=== PATIENT | female | born 1945 | race Caucasian/White ===

== ENCOUNTER 2017-06-22 12:52 | Emergency (ER) | payer MEDICARE, BC, OTHER ==
[~2017-06-22] VITALS: Ht 162.6 cm; Wt 123.8 kg
[~2017-06-22 12:52] MED LIST: AMLO10 PO; ASPI325 PO; ASPI81CH PO; ASPI81EC PO; BUPR150ER PO; BUPR150T2 PO; CHOL10002 PO; CHOLESTID PO; CYAN500 PO; DOCU100 PO; DULO60 PO; ERGO400 PO; ESCI10 PO; ESCI20 PO; FISH1000 PO; GLIP10ER PO; HYDMOR2 PO; Hair, Skin & N1 EACH PO; Humalog100 UNIT/1 SC; INSLI100I SC; INSLIS75I SC; INSR10I SC; INSULANI SC; INSULANPEN SC; IRBHYD150 PO; IRBHYD300 PO; LEVSOD200 PO; LEVSOD75 PO; LOSA25 PO; LOSARTAN-HCTZ1 EAC1 PO; METO50ER PO; METTREX2.5 PO; Norco 10-325 T1 EACH PO; OMEG1CAP30 PO; OMEP20ER PO; OXYACE5T PO; PIOG45 PO; PRED10 PO; PROM25 PO; PSYL5.85P PO; RXOXYACE PO; STOMUL PO; TOUJEO SOL300 UNIT/1 SC
[2017-06-22 13:38] LABS: Hematocrit 34.8 % (33.0-51.0); Mean Corpuscular HGB 32.3 pg (26.0-34.0); Mean Corpuscular HGB Conc 34.5 g/dL (31.5-36.5); Mean Corpuscular Volume 94 fL (80-100); Mean Platelet Volume 10.1 fL (9.1-12.4); NRBC ABSOLUTE 0.03 K/mm3 (0.00-0.02); NRBC Auto 0.3 /100 WBC (0.0-0.2); Platelet Count 143 K/mm3 (150-400); RDW Coefficient Variation 16.7 % (11.7-14.2); RDW Standard Deviation 53.6 fL (35.1-46.3); Red Blood Cell Count 3.72 M/mm3 (3.80-5.20); White Blood Cell Count 9.76 K/mm3 (4.00-11.30)
[2017-06-22 13:53] LABS: Alanine Aminotransfer (ALT/SGP 45 U/L (12-78); Albumin, Blood 3.1 g/dL (3.4-5.0); Albumin/Globulin Ratio 0.9 (0.8-1.8); Alk Phos 79 U/L (50-136); Anion Gap 10 mmol/L (6-16); Aspartate Aminotrans (AST/SGOT 42 U/L (12-37); Bilirubin, Total 0.6 mg/dL (0.1-1.0); Blood Urea Nitrogen 24 mg/dL (8-24); Bun/Creatinine Ratio 17.4 (12.0-20.0); CO2, Blood 27 mmol/L (21-32); Calcium, Blood 9.2 mg/dL (8.5-10.1); Chloride, Blood 102 mmol/L (98-108); Creatinine, Blood 1.38 mg/dL (0.40-1.00); Globulin, Blood 3.4 g/dL (2.2-4.0); Glomerular Filtration Rate 40 (60-); Glucose, Blood 303 mg/dL (70-99); Potassium, Blood 3.2 mmol/L (3.5-5.5); Sodium, Blood 139 mmol/L (136-145); Total Protein, Blood 6.5 g/dL (6.4-8.2); Troponin I <0.015 ng/mL (0.000-0.040)
[2017-06-22 14:05] LABS: BASOPHILS PERCENT MAN 0 % (0-2); EOSINOPHILS PERCENT MAN 0 % (0-6); LYMPHOCYTES ABSOLUTE MAN 4.58 K/mm3 (0.84-5.20); LYMPHOCYTES PERCENT MAN 47 % (21-46); METAMYELOCYTE ABSOLUTE MAN 0.29 K/mm3 (0.00-0.00); METAMYELOCYTE PERCENT MAN 3 % (0-0); MONOCYTES ABSOLUTE MAN 0.48 K/mm3 (0.16-1.47); MONOCYTES PERCENT MAN 5 % (4-13); NEUTROPHILS ABSOLUTE MAN 4.39 K/mm3 (1.96-9.15); SEG NEUTROPHILS PERCENT MAN 45 % (41-73); TOTAL CELLS COUNTED 100
[2017-06-22] MEDS ORDERED: Cipro500 MG PO (16:42)
[2017-06-22] MEDS ORDERED: Flagyl500 MG PO (16:42)
[2017-06-22] MEDS ORDERED: Norco 5-325 Ta1 EACH PO (16:42)
[2017-06-22] MEDS ORDERED: ONDA4ODT MM (16:42)
== END 2017-06-22 17:00 | disposition home or self-care (01) ==
LOC: ER 12:52
PROVIDERS: Emergency Medicine
DX: K52.9 Noninfective gastroenteritis and colitis, unspecified (principal); E11.9 Type 2 diabetes mellitus without complications; E78.00 Pure hypercholesterolemia, unspecified; Z88.5 Allergy status to narcotic agent; Z88.8 Allergy status to other drugs, medicaments and biological substances; Z79.899 Other long term (current) drug therapy; Z79.4 Long term (current) use of insulin; Z79.82 Long term (current) use of aspirin; Z90.712 Acquired absence of cervix with remaining uterus; Z90.49 Acquired absence of other specified parts of digestive tract; Z87.891 Personal history of nicotine dependence
CPT/HCPCS: 36415; 71046; 74177; 80053; 83690; 83880; 84484; 85025; 93005; 93010; 96374; 96375; 96376; 99284; J1170; J2405; Q9967

== ENCOUNTER 2017-07-10 14:06 | Inpatient (IN) | payer MEDICARE, BC, OTHER ==
[~2017-07-10] VITALS: Ht 162.6 cm; Wt 136.8 kg
[~2017-07-10 14:06] MED LIST changes: +Cipro500 MG PO; +Flagyl500 MG PO; +Norco 5-325 Ta1 EACH PO; +ONDA4ODT MM
[2017-07-10 14:52] LABS: BASOPHILS ABSOLUTE AUTO 0.02 K/mm3 (0.00-0.23); BASOPHILS PERCENT AUTO 0 % (0-2); EOSINOPHILS ABSOLUTE AUTO 0.08 K/mm3 (0.00-0.68); EOSINOPHILS PERCENT AUTO 1 % (0-6); Hematocrit 34.6 % (33.0-51.0); Hemoglobin 11.4 g/dL (11.5-16.0); Mean Corpuscular HGB 32.3 pg (26.0-34.0); Mean Corpuscular HGB Conc 32.9 g/dL (31.5-36.5); Mean Corpuscular Volume 98 fL (80-100); Mean Platelet Volume 11.3 fL (9.1-12.4); Platelet Count 143 K/mm3 (150-400); RDW Coefficient Variation 17.2 % (11.7-14.2); RDW Standard Deviation 61.1 fL (35.1-46.3); Red Blood Cell Count 3.53 M/mm3 (3.80-5.20); White Blood Cell Count 8.39 K/mm3 (4.00-11.30)
[2017-07-10 14:53] LABS: IMMATURE GRAN ABSOLUTE AUTO 0.04 K/mm3 (0.00-0.10); IMMATURE GRAN PERCENT AUTO 1 % (0-1); LYMPHOCYTES ABSOLUTE AUTO 1.95 K/mm3 (0.84-5.20); LYMPHOCYTES PERCENT AUTO 23 % (21-46); MONOCYTES PERCENT AUTO 5 % (4-13); NEUTROPHILS PERCENT AUTO 70 % (41-73)
[2017-07-10 15:14] LABS: Troponin I 0.016 ng/mL (0.000-0.040)
[2017-07-10 15:19] LABS: Albumin/Globulin Ratio 0.9 (0.8-1.8); Bilirubin, Total 1.5 mg/dL (0.1-1.0); Bun/Creatinine Ratio 22.3 (12.0-20.0); Calcium, Blood 8.3 mg/dL (8.5-10.1); Creatinine, Blood 1.21 mg/dL (0.40-1.00); Globulin, Blood 3.4 g/dL (2.2-4.0); Potassium, Blood 3.9 mmol/L (3.5-5.5); Total Protein, Blood 6.4 g/dL (6.4-8.2)
[2017-07-10 22:45] LABS: Adenovirus F 40/41 Not Detected (NOT DETECT); Astrovirus Not Detected (NOT DETECT); Campylobacter Sp Not Detected (NOT DETECT); Cryptosporidium Not Detected (NOT DETECT); Cyclospora Cayetanensis Not Detected (NOT DETECT); E. Coli O157 Not Detected (NOT DETECT); Entamoeba Histolytica Not Detected (NOT DETECT); Enteroaggregative E. coli-EAEC Not Detected (NOT DETECT); Enteropathogenic E. coli-EPEC Not Detected (NOT DETECT); Enterotoxigenic E. coli-ETEC Not Detected (NOT DETECT); Giardia Lamblia Not Detected (NOT DETECT); Norovirus GI/GII Not Detected (NOT DETECT); Plesiomonas Shigelloides Not Detected (NOT DETECT); Rotavirus A Not Detected (NOT DETECT); Salmonella Sp Not Detected (NOT DETECT); Sapovirus Not Detected (NOT DETECT); Shiga Toxin-prod E. coli-STEC Not Detected (NOT DETECT); Shigella/Enteroin E. coli-EIEC Not Detected (NOT DETECT); Vibrio Cholerae Not Detected (NOT DETECT); Vibrio Sp Not Detected (NOT DETECT); Yersinia Enterocolitica Not Detected (NOT DETECT)
[2017-07-10 23:39] LABS: Influenza A Negative (NEGATIVE); Influenza B Negative (NEGATIVE)
[2017-07-11 00:16] LABS: BASOPHILS ABSOLUTE AUTO 0.01 K/mm3 (0.00-0.23); BASOPHILS PERCENT AUTO 0 % (0-2); EOSINOPHILS ABSOLUTE AUTO 0.06 K/mm3 (0.00-0.68); EOSINOPHILS PERCENT AUTO 1 % (0-6); Hematocrit 28.6 % (33.0-51.0); Hemoglobin 9.8 g/dL (11.5-16.0); Mean Corpuscular HGB 33.1 pg (26.0-34.0); Mean Corpuscular HGB Conc 34.3 g/dL (31.5-36.5); Mean Corpuscular Volume 97 fL (80-100); Mean Platelet Volume 11.9 fL (9.1-12.4); Platelet Count 137 K/mm3 (150-400); RDW Coefficient Variation 17.1 % (11.7-14.2); RDW Standard Deviation 59.1 fL (35.1-46.3); Red Blood Cell Count 2.96 M/mm3 (3.80-5.20); White Blood Cell Count 5.36 K/mm3 (4.00-11.30)
[2017-07-11 00:17] LABS: IMMATURE GRAN ABSOLUTE AUTO 0.07 K/mm3 (0.00-0.10); IMMATURE GRAN PERCENT AUTO 1 % (0-1); LYMPHOCYTES ABSOLUTE AUTO 1.27 K/mm3 (0.84-5.20); LYMPHOCYTES PERCENT AUTO 24 % (21-46); MONOCYTES ABSOLUTE AUTO 0.46 K/mm3 (0.16-1.47); MONOCYTES PERCENT AUTO 9 % (4-13); NEUTROPHILS ABSOLUTE AUTO 3.49 K/mm3 (1.96-9.15); NEUTROPHILS PERCENT AUTO 65 % (41-73)
[2017-07-11 00:35] LABS: Albumin, Blood 2.5 g/dL (3.4-5.0); Albumin/Globulin Ratio 0.8 (0.8-1.8); Bun/Creatinine Ratio 24.3 (12.0-20.0); Calcium, Blood 7.7 mg/dL (8.5-10.1); Creatinine, Blood 1.11 mg/dL (0.40-1.00); Potassium, Blood 3.8 mmol/L (3.5-5.5); Total Protein, Blood 5.5 g/dL (6.4-8.2)
[2017-07-12 13:51] LABS: Source, Urine Catheter
[2017-07-12 14:00] LABS: Appearance, Urine Hazy (Clear); Blood, Urine 3+ (Neg); Color, Urine Amber (P-Yellow); Glucose Qualitative, Urine 2+ (Neg); Ketones, Urine 1+ (Neg); Leukocyte Esterase, Urine 2+ (Neg); Nitrite, Urine Pos (Neg); Protein, Urine 3+ (Neg); Urobilinogen, Urine 1+ (Normal)
[2017-07-12 14:16] LABS: Squamous Epithelial Cells Few /hpf (Few)
[2017-07-12 14:17] LABS: Bacteria Mod /hpf
[2017-07-14 05:03] LABS: Bun/Creatinine Ratio 25.3 (12.0-20.0); Calcium, Blood 7.1 mg/dL (8.5-10.1); Creatinine, Blood 1.9 mg/dL (0.40-1.00); Magnesium, Blood 1.6 mg/dL (1.6-2.4); Potassium, Blood 3.3 mmol/L (3.5-5.5)
[2017-07-15 05:31] LABS: Hematocrit 31.3 % (33.0-51.0); Hemoglobin 10.8 g/dL (11.5-16.0); Mean Corpuscular HGB Conc 34.5 g/dL (31.5-36.5); Mean Corpuscular Volume 96 fL (80-100); Mean Platelet Volume 12.1 fL (9.1-12.4); NRBC ABSOLUTE 0.06 K/mm3 (0.00-0.02); NRBC Auto 0.2 /100 WBC (0.0-0.2); Platelet Count 179 K/mm3 (150-400); RDW Coefficient Variation 18.5 % (11.7-14.2); RDW Standard Deviation 64.1 fL (35.1-46.3); Red Blood Cell Count 3.27 M/mm3 (3.80-5.20); White Blood Cell Count 27.13 K/mm3 (4.00-11.30)
[2017-07-15 05:50] LABS: Bun/Creatinine Ratio 26.8 (12.0-20.0); Calcium, Blood 6.7 mg/dL (8.5-10.1); Creatinine, Blood 1.98 mg/dL (0.40-1.00); Potassium, Blood 3.3 mmol/L (3.5-5.5)
[2017-07-15 06:17] LABS: BAND PERCENT MAN 3 % (0-8); BASOPHILS PERCENT MAN 0 % (0-2); EOSINOPHILS PERCENT MAN 0 % (0-6); LYMPHOCYTES % ATYPICAL MANUAL 1 % (0-0); LYMPHOCYTES ABSOLUTE MAN 2.17 K/mm3 (0.84-5.20); LYMPHOCYTES PERCENT MAN 7 % (21-46); METAMYELOCYTE ABSOLUTE MAN 0.27 K/mm3 (0.00-0.00); METAMYELOCYTE PERCENT MAN 1 % (0-0); MONOCYTES ABSOLUTE MAN 2.17 K/mm3 (0.16-1.47); MONOCYTES PERCENT MAN 8 % (4-13); MYELOCYTE ABSOLUTE MAN 0.27 K/mm3 (0.00-0.00); MYELOCYTE PERCENT MAN 1 % (0-0); NEUTROPHILS ABSOLUTE MAN 22.24 K/mm3 (1.96-9.15); SEG NEUTROPHILS PERCENT MAN 79 % (41-73); TOTAL CELLS COUNTED 100
[2017-07-16 05:18] LABS: Hematocrit 28.5 % (33.0-51.0); Hemoglobin 9.8 g/dL (11.5-16.0); Mean Corpuscular HGB 32.8 pg (26.0-34.0); Mean Corpuscular HGB Conc 34.4 g/dL (31.5-36.5); Mean Corpuscular Volume 95 fL (80-100); Mean Platelet Volume 11.4 fL (9.1-12.4); NRBC ABSOLUTE 0.04 K/mm3 (0.00-0.02); NRBC Auto 0.1 /100 WBC (0.0-0.2); Platelet Count 150 K/mm3 (150-400); RDW Coefficient Variation 18.3 % (11.7-14.2); RDW Standard Deviation 63.7 fL (35.1-46.3); Red Blood Cell Count 2.99 M/mm3 (3.80-5.20); White Blood Cell Count 27.68 K/mm3 (4.00-11.30)
[2017-07-16 05:44] LABS: BAND PERCENT MAN 5 % (0-8); BASOPHILS PERCENT MAN 0 % (0-2); EOSINOPHILS ABSOLUTE MAN 0.55 K/mm3 (0.00-0.68); EOSINOPHILS PERCENT MAN 2 % (0-6); LYMPHOCYTES ABSOLUTE MAN 3.59 K/mm3 (0.84-5.20); LYMPHOCYTES PERCENT MAN 13 % (21-46); METAMYELOCYTE ABSOLUTE MAN 0.83 K/mm3 (0.00-0.00); METAMYELOCYTE PERCENT MAN 3 % (0-0); MONOCYTES PERCENT MAN 4 % (4-13); MYELOCYTE ABSOLUTE MAN 0.27 K/mm3 (0.00-0.00); MYELOCYTE PERCENT MAN 1 % (0-0); NEUTROPHILS ABSOLUTE MAN 21.31 K/mm3 (1.96-9.15); SEG NEUTROPHILS PERCENT MAN 72 % (41-73); TOTAL CELLS COUNTED 100
[2017-07-16 06:04] LABS: Calcium, Blood 7.4 mg/dL (8.5-10.1); Creatinine, Blood 1.94 mg/dL (0.40-1.00); Potassium, Blood 3.2 mmol/L (3.5-5.5)
[2017-07-16 17:55] LABS: Source, Urine Voided
[2017-07-16 18:00] LABS: Blood, Urine 5+ (Neg); Glucose Qualitative, Urine Neg (Neg); Ketones, Urine 1+ (Neg); Leukocyte Esterase, Urine 2+ (Neg); Nitrite, Urine Pos (Neg); Protein, Urine 1+ (Neg); Urobilinogen, Urine 1+ (Normal)
[2017-07-16 18:10] LABS: Adenovirus F 40/41 Not Detected (NOT DETECT); Astrovirus Not Detected (NOT DETECT); Campylobacter Sp Not Detected (NOT DETECT); Cryptosporidium Not Detected (NOT DETECT); Cyclospora Cayetanensis Not Detected (NOT DETECT); E. Coli O157 Not Detected (NOT DETECT); Entamoeba Histolytica Not Detected (NOT DETECT); Enteroaggregative E. coli-EAEC Not Detected (NOT DETECT); Enteropathogenic E. coli-EPEC Not Detected (NOT DETECT); Enterotoxigenic E. coli-ETEC Not Detected (NOT DETECT); Giardia Lamblia Not Detected (NOT DETECT); Norovirus GI/GII Not Detected (NOT DETECT); Plesiomonas Shigelloides Not Detected (NOT DETECT); Rotavirus A Not Detected (NOT DETECT); Salmonella Sp Not Detected (NOT DETECT); Sapovirus Not Detected (NOT DETECT); Shiga Toxin-prod E. coli-STEC Not Detected (NOT DETECT); Shigella/Enteroin E. coli-EIEC Not Detected (NOT DETECT); Vibrio Cholerae Not Detected (NOT DETECT); Vibrio Sp Not Detected (NOT DETECT); Yersinia Enterocolitica Not Detected (NOT DETECT)
[2017-07-16 18:44] LABS: Bilirubin, Urine 1+ (Neg); Color, Urine Brown (P-Yellow)
[2017-07-16 18:45] LABS: Appearance, Urine Hazy (Clear)
[2017-07-16 18:49] LABS: Red Blood Cells, Urine 25-50 /hpf (0-2)
[2017-07-16 18:50] LABS: Bacteria Few /hpf; Squamous Epithelial Cells Few /hpf (Few)
[2017-07-17 04:53] LABS: Hematocrit 26.7 % (33.0-51.0); Hemoglobin 9.3 g/dL (11.5-16.0); Mean Corpuscular HGB 32.7 pg (26.0-34.0); Mean Corpuscular HGB Conc 34.8 g/dL (31.5-36.5); Mean Corpuscular Volume 94 fL (80-100); Mean Platelet Volume 11.8 fL (9.1-12.4); NRBC ABSOLUTE 0.06 K/mm3 (0.00-0.02); NRBC Auto 0.2 /100 WBC (0.0-0.2); Platelet Count 150 K/mm3 (150-400); RDW Coefficient Variation 18.1 % (11.7-14.2); Red Blood Cell Count 2.84 M/mm3 (3.80-5.20); White Blood Cell Count 26.35 K/mm3 (4.00-11.30)
[2017-07-17 05:16] LABS: Bun/Creatinine Ratio 40.4 (12.0-20.0); Calcium, Blood 7.4 mg/dL (8.5-10.1); Creatinine, Blood 1.61 mg/dL (0.40-1.00); Potassium, Blood 3.6 mmol/L (3.5-5.5)
[2017-07-17 05:33] LABS: BAND PERCENT MAN 1 % (0-8); BASOPHILS PERCENT MAN 0 % (0-2); EOSINOPHILS ABSOLUTE MAN 0.52 K/mm3 (0.00-0.68); EOSINOPHILS PERCENT MAN 2 % (0-6); LYMPHOCYTES ABSOLUTE MAN 4.74 K/mm3 (0.84-5.20); LYMPHOCYTES PERCENT MAN 18 % (21-46); MONOCYTES ABSOLUTE MAN 1.31 K/mm3 (0.16-1.47); MONOCYTES PERCENT MAN 5 % (4-13); MYELOCYTE ABSOLUTE MAN 1.05 K/mm3 (0.00-0.00); MYELOCYTE PERCENT MAN 4 % (0-0); SEG NEUTROPHILS PERCENT MAN 70 % (41-73); TOTAL CELLS COUNTED 100
[2017-07-18 05:06] LABS: Thyroid Stimulating Hormone 5.16 uIU/mL (0.360-4.800)
[2017-07-18 05:07] LABS: Albumin, Blood 1.7 g/dL (3.4-5.0); Albumin/Globulin Ratio 0.6 (0.8-1.8); Bilirubin, Total 1.3 mg/dL (0.1-1.0); Calcium, Blood 7.5 mg/dL (8.5-10.1); Creatinine, Blood 1.23 mg/dL (0.40-1.00); Globulin, Blood 2.9 g/dL (2.2-4.0); Potassium, Blood 3.7 mmol/L (3.5-5.5); Total Protein, Blood 4.6 g/dL (6.4-8.2)
[2017-07-18 06:27] LABS: BASOPHILS ABSOLUTE AUTO 0.18 K/mm3 (0.00-0.23); BASOPHILS PERCENT AUTO 1 % (0-2); Hematocrit 29.1 % (33.0-51.0); Hemoglobin 9.7 g/dL (11.5-16.0); LYMPHOCYTES ABSOLUTE AUTO 3.14 K/mm3 (0.84-5.20); LYMPHOCYTES PERCENT AUTO 12 % (21-46); MONOCYTES ABSOLUTE AUTO 2.19 K/mm3 (0.16-1.47); MONOCYTES PERCENT AUTO 8 % (4-13); Mean Corpuscular HGB 33.1 pg (26.0-34.0); Mean Corpuscular HGB Conc 33.3 g/dL (31.5-36.5); Mean Platelet Volume 12.2 fL (9.1-12.4); NRBC ABSOLUTE 0.14 K/mm3 (0.00-0.02); NRBC Auto 0.5 /100 WBC (0.0-0.2); Platelet Count 154 K/mm3 (150-400); RDW Coefficient Variation 19.2 % (11.7-14.2); RDW Standard Deviation 69.3 fL (35.1-46.3); Red Blood Cell Count 2.93 M/mm3 (3.80-5.20); White Blood Cell Count 27.11 K/mm3 (4.00-11.30)
[2017-07-18 06:36] LABS: EOSINOPHILS PERCENT AUTO 1 % (0-6); IMMATURE GRAN ABSOLUTE AUTO 5.09 K/mm3 (0.00-0.10); IMMATURE GRAN PERCENT AUTO 19 % (0-1); Mean Corpuscular Volume 99 fL (80-100); NEUTROPHILS ABSOLUTE AUTO 16.31 K/mm3 (1.96-9.15); NEUTROPHILS PERCENT AUTO 60 % (41-73)
[2017-07-18 06:56] LABS: BAND PERCENT MAN 8 % (0-8); BASOPHILS PERCENT MAN 0 % (0-2); EOSINOPHILS ABSOLUTE MAN 0.27 K/mm3 (0.00-0.68); EOSINOPHILS PERCENT MAN 1 % (0-6); LYMPHOCYTES ABSOLUTE MAN 2.16 K/mm3 (0.84-5.20); LYMPHOCYTES PERCENT MAN 8 % (21-46); METAMYELOCYTE ABSOLUTE MAN 2.43 K/mm3 (0.00-0.00); METAMYELOCYTE PERCENT MAN 9 % (0-0); MONOCYTES ABSOLUTE MAN 0.81 K/mm3 (0.16-1.47); MONOCYTES PERCENT MAN 3 % (4-13); MYELOCYTE ABSOLUTE MAN 0.27 K/mm3 (0.00-0.00); MYELOCYTE PERCENT MAN 1 % (0-0); PROMYELOCYTE ABSOLUTE MAN 0.54 K/mm3 (0.00-0.00); PROMYELOCYTE PERCENT MAN 2 % (0-0); SEG NEUTROPHILS PERCENT MAN 68 % (41-73); TOTAL CELLS COUNTED 100
[2017-07-18 10:58] LABS: Bilirubin, Direct 0.9 mg/dL (0.0-0.3)
[2017-07-19 05:15] LABS: BASOPHILS ABSOLUTE AUTO 0.05 K/mm3 (0.00-0.23); BASOPHILS PERCENT AUTO 0 % (0-2); EOSINOPHILS ABSOLUTE AUTO 0.18 K/mm3 (0.00-0.68); EOSINOPHILS PERCENT AUTO 1 % (0-6); Hematocrit 31.1 % (33.0-51.0); Hemoglobin 10.2 g/dL (11.5-16.0); IMMATURE GRAN ABSOLUTE AUTO 5.64 K/mm3 (0.00-0.10); IMMATURE GRAN PERCENT AUTO 21 % (0-1); LYMPHOCYTES ABSOLUTE AUTO 3.47 K/mm3 (0.84-5.20); LYMPHOCYTES PERCENT AUTO 13 % (21-46); MONOCYTES ABSOLUTE AUTO 2.16 K/mm3 (0.16-1.47); MONOCYTES PERCENT AUTO 8 % (4-13); Mean Corpuscular HGB Conc 32.8 g/dL (31.5-36.5); Mean Corpuscular Volume 98 fL (80-100); Mean Platelet Volume 11.9 fL (9.1-12.4); NEUTROPHILS ABSOLUTE AUTO 15.09 K/mm3 (1.96-9.15); NEUTROPHILS PERCENT AUTO 57 % (41-73); NRBC ABSOLUTE 0.17 K/mm3 (0.00-0.02); NRBC Auto 0.6 /100 WBC (0.0-0.2); Platelet Count 172 K/mm3 (150-400); RDW Coefficient Variation 19.9 % (11.7-14.2); RDW Standard Deviation 69.6 fL (35.1-46.3); Red Blood Cell Count 3.19 M/mm3 (3.80-5.20); White Blood Cell Count 26.59 K/mm3 (4.00-11.30)
[2017-07-19 05:42] LABS: Bun/Creatinine Ratio 50.1 (12.0-20.0); Calcium, Blood 7.8 mg/dL (8.5-10.1); Potassium, Blood 4.3 mmol/L (3.5-5.5)
[2017-07-19 05:51] LABS: BAND PERCENT MAN 7 % (0-8); BASOPHILS PERCENT MAN 0 % (0-2); EOSINOPHILS ABSOLUTE MAN 0.26 K/mm3 (0.00-0.68); EOSINOPHILS PERCENT MAN 1 % (0-6); LYMPHOCYTES ABSOLUTE MAN 1.32 K/mm3 (0.84-5.20); LYMPHOCYTES PERCENT MAN 5 % (21-46); METAMYELOCYTE ABSOLUTE MAN 2.12 K/mm3 (0.00-0.00); METAMYELOCYTE PERCENT MAN 8 % (0-0); MONOCYTES ABSOLUTE MAN 1.86 K/mm3 (0.16-1.47); MONOCYTES PERCENT MAN 7 % (4-13); MYELOCYTE ABSOLUTE MAN 0.79 K/mm3 (0.00-0.00); MYELOCYTE PERCENT MAN 3 % (0-0); SEG NEUTROPHILS PERCENT MAN 69 % (41-73); TOTAL CELLS COUNTED 100
[2017-07-20 10:44] LABS: Hematocrit 30.3 % (33.0-51.0); Hemoglobin 9.9 g/dL (11.5-16.0); Mean Corpuscular HGB 32.2 pg (26.0-34.0); Mean Corpuscular HGB Conc 32.7 g/dL (31.5-36.5); Mean Corpuscular Volume 99 fL (80-100); Mean Platelet Volume 11.3 fL (9.1-12.4); NRBC ABSOLUTE 0.18 K/mm3 (0.00-0.02); NRBC Auto 0.8 /100 WBC (0.0-0.2); Platelet Count 135 K/mm3 (150-400); RDW Coefficient Variation 20.9 % (11.7-14.2); RDW Standard Deviation 71.9 fL (35.1-46.3); Red Blood Cell Count 3.07 M/mm3 (3.80-5.20); White Blood Cell Count 23.35 K/mm3 (4.00-11.30)
[2017-07-20 11:05] LABS: BAND PERCENT MAN 8 % (0-8); BASOPHILS PERCENT MAN 0 % (0-2); EOSINOPHILS ABSOLUTE MAN 0.23 K/mm3 (0.00-0.68); EOSINOPHILS PERCENT MAN 1 % (0-6); LYMPHOCYTES ABSOLUTE MAN 1.86 K/mm3 (0.84-5.20); LYMPHOCYTES PERCENT MAN 8 % (21-46); METAMYELOCYTE ABSOLUTE MAN 1.16 K/mm3 (0.00-0.00); METAMYELOCYTE PERCENT MAN 5 % (0-0); MONOCYTES ABSOLUTE MAN 0.93 K/mm3 (0.16-1.47); MONOCYTES PERCENT MAN 4 % (4-13); MYELOCYTE PERCENT MAN 6 % (0-0); NEUTROPHILS ABSOLUTE MAN 17.74 K/mm3 (1.96-9.15); SEG NEUTROPHILS PERCENT MAN 68 % (41-73); TOTAL CELLS COUNTED 100
[2017-07-20 11:05] LABS: Performing Lab SYMBIODX; Test Name FLOW BLOOD
[2017-07-21 05:09] LABS: CK BB 0 % (0); CK MB 0 % (0-3); CK MM 100 % (97-100)
[2017-07-21 10:59] LABS: Anion Gap 8 mmol/L (6-16); Blood Urea Nitrogen 30 mg/dL (8-24); Bun/Creatinine Ratio 39.7 (12.0-20.0); CO2, Blood 22 mmol/L (21-32); Calcium, Blood 8.1 mg/dL (8.5-10.1); Chloride, Blood 114 mmol/L (98-108); Creatinine, Blood 0.76 mg/dL (0.40-1.00); Glomerular Filtration Rate >60 (60-); Glucose, Blood 197 mg/dL (70-99); Phosphorus, Blood 2.5 mg/dL (2.5-4.9); Potassium, Blood 4.3 mmol/L (3.5-5.5); Sodium, Blood 144 mmol/L (136-145)
[2017-07-21] MEDS ORDERED: LEVEMIR FL100 UNIT/1 SC (13:51)
[2017-07-21] MEDS ORDERED: DULO60 PO (13:53)
[2017-07-21] MEDS ORDERED: INSU100I6 SC (13:55)
[2017-07-21] MEDS ORDERED: VANCOCIN HCL250 MG PO (13:58)
[2017-07-21] MEDS ORDERED: ONDA4ODT SL (13:59)
[2017-07-21 15:20] LABS: Result SEE LABOUT RESULTS
== END 2017-07-21 14:33 | DRG 871 ==
LOC: ER 14:06 → MEDS 19:50 → ENPENDDIS 07-21 10:52 → MEDS 07-21 14:33
PROVIDERS: Internal Medicine; Internal Medicine Gastroenterology; Physician Assistant
PROC: 3E0234Z Introduction of Serum, Toxoid and Vaccine into Muscle, Percutaneous Approach (ICD-10-PCS; principal; 2017-07-10)
DX: A41.4 Sepsis due to anaerobes (principal); G93.41 Metabolic encephalopathy; N17.9 Acute kidney failure, unspecified; A04.72 Enterocolitis due to Clostridium difficile, not specified as recurrent; C85.90 Non-Hodgkin lymphoma, unspecified, unspecified site; Z68.42 Body mass index [BMI] 45.0-49.9, adult; E87.1 Hypo-osmolality and hyponatremia; S22.39XA Fracture of one rib, unspecified side, initial encounter for closed fracture; E11.22 Type 2 diabetes mellitus with diabetic chronic kidney disease; Z23 Encounter for immunization; E66.01 Morbid (severe) obesity due to excess calories; M35.3 Polymyalgia rheumatica; I12.9 Hypertensive chronic kidney disease with stage 1 through stage 4 chronic kidney disease, or unspecified chronic kidney disease; N18.3 Chronic kidney disease, stage 3 (moderate); E83.51 Hypocalcemia; R33.9 Retention of urine, unspecified; E87.6 Hypokalemia; R44.1 Visual hallucinations
CPT/HCPCS: 36415; 71046; 71260; 74019; 74176; 74177; 76705; 80048; 80053; 80069; 81001; 82140; 82248; 82550; 82552; 82947; 82977; 83605; 83735; 83993; 84145; 84443; 84484; 85007; 85025; 85027; 85060; 85651; 87040; 87086; 87177; 87209; 87493; 87507; 87804; 88184; 88185; 93005; 93010; 96361; 96374; 96375; 97110; 97116; 97163; 97530; 99285; G8978; G8979; J1170; J1650; J1815; J2060; J2270; J2405; J3010; J3480; J7030; Q9967

== ENCOUNTER 2017-07-24 17:31 | Emergency (ER) | payer MEDICARE, BC, OTHER ==
[~2017-07-24] VITALS: Ht 162.6 cm; Wt 136.1 kg
[~2017-07-24 17:31] MED LIST changes: +INSU100I6 SC; +LEVEMIR FL100 UNIT/1 SC; +ONDA4ODT SL; +VANCOCIN HCL250 MG PO
[2017-07-24] MEDS ORDERED: ACET325 PO (18:19)
[2017-07-24] MEDS ORDERED: VANC250 PO (18:20)
[2017-07-24] MEDS ORDERED: BISA10S PR (18:20)
[2017-07-24] MEDS ORDERED: CVS DISPOSABLE399 ML PR (18:21)
[2017-07-24] MEDS ORDERED: Milk Of Ma400 MG/5 M PO (18:22)
[2017-07-24 18:39] LABS: BASOPHILS ABSOLUTE AUTO 0.02 K/mm3 (0.00-0.23); BASOPHILS PERCENT AUTO 0 % (0-2); EOSINOPHILS ABSOLUTE AUTO 0.08 K/mm3 (0.00-0.68); EOSINOPHILS PERCENT AUTO 1 % (0-6); Hematocrit 31.8 % (33.0-51.0); Hemoglobin 10.1 g/dL (11.5-16.0); IMMATURE GRAN ABSOLUTE AUTO 0.28 K/mm3 (0.00-0.10); IMMATURE GRAN PERCENT AUTO 3 % (0-1); LYMPHOCYTES ABSOLUTE AUTO 2.27 K/mm3 (0.84-5.20); LYMPHOCYTES PERCENT AUTO 22 % (21-46); MONOCYTES PERCENT AUTO 11 % (4-13); Mean Corpuscular HGB 32.9 pg (26.0-34.0); Mean Corpuscular HGB Conc 31.8 g/dL (31.5-36.5); Mean Platelet Volume 12.1 fL (9.1-12.4); NEUTROPHILS ABSOLUTE AUTO 6.48 K/mm3 (1.96-9.15); NEUTROPHILS PERCENT AUTO 63 % (41-73); Platelet Count 154 K/mm3 (150-400); RDW Coefficient Variation 20.6 % (11.7-14.2); RDW Standard Deviation 78.3 fL (35.1-46.3); Red Blood Cell Count 3.07 M/mm3 (3.80-5.20); White Blood Cell Count 10.23 K/mm3 (4.00-11.30)
[2017-07-24 18:42] LABS: Mean Corpuscular Volume 104 fL (80-100)
[2017-07-24 19:00] LABS: Alanine Aminotransfer (ALT/SGP 33 U/L (12-78); Albumin/Globulin Ratio 0.7 (0.8-1.8); Alk Phos 300 U/L (50-136); Anion Gap 9 mmol/L (6-16); Aspartate Aminotrans (AST/SGOT 57 U/L (12-37); Bilirubin, Total 0.9 mg/dL (0.1-1.0); Blood Urea Nitrogen 15 mg/dL (8-24); Bun/Creatinine Ratio 18.4 (12.0-20.0); CO2, Blood 22 mmol/L (21-32); Calcium, Blood 7.6 mg/dL (8.5-10.1); Chloride, Blood 111 mmol/L (98-108); Creatinine, Blood 0.82 mg/dL (0.40-1.00); Globulin, Blood 2.9 g/dL (2.2-4.0); Glomerular Filtration Rate >60 (60-); Glucose, Blood 118 mg/dL (70-99); Potassium, Blood 4.1 mmol/L (3.5-5.5); Sodium, Blood 142 mmol/L (136-145); Total Protein, Blood 4.9 g/dL (6.4-8.2)
[2017-07-24 19:43] LABS: Source, Urine Clean Catch
[2017-07-24 19:49] LABS: Appearance, Urine Hazy (Clear); Bilirubin, Urine Neg (Neg); Blood, Urine 5+ (Neg); Color, Urine Yellow (P-Yellow); Glucose Qualitative, Urine Neg (Neg); Ketones, Urine Neg (Neg); Leukocyte Esterase, Urine 3+ (Neg); Nitrite, Urine Neg (Neg); Protein, Urine Neg (Neg); Specific Gravity, Urine 1.015 (1.003-1.022); Urobilinogen, Urine NORM (Normal)
[2017-07-24 20:14] LABS: Bacteria Mod /hpf; Squamous Epithelial Cells Many /hpf (Few); White Blood Cells, Urine 50-100 /hpf (0-5)
[2017-07-24] MEDS ORDERED: CEFP200 PO (21:08)
== END 2017-07-24 22:24 | disposition home or self-care (01) ==
LOC: ER 17:31
PROVIDERS: Emergency Medicine
DX: N39.0 Urinary tract infection, site not specified (principal); E11.9 Type 2 diabetes mellitus without complications; E78.00 Pure hypercholesterolemia, unspecified; Z88.5 Allergy status to narcotic agent; Z88.8 Allergy status to other drugs, medicaments and biological substances; Z79.899 Other long term (current) drug therapy; Z79.52 Long term (current) use of systemic steroids; Z79.4 Long term (current) use of insulin; Z79.82 Long term (current) use of aspirin; Z90.712 Acquired absence of cervix with remaining uterus; N28.9 Disorder of kidney and ureter, unspecified; I10 Essential (primary) hypertension; G47.33 Obstructive sleep apnea (adult) (pediatric)
CPT/HCPCS: 36415; 74176; 80053; 81001; 83690; 85025; 87086; 96361; 96374; 96375; 96376; 99284; J0696; J1170; J1200; J1630; J2405; J7030

== ENCOUNTER 2017-09-15 00:01 | Observation (INO) | payer MEDICARE, BC, OTHER ==
[~2017-09-15] VITALS: Ht 162.6 cm; Wt 124.5 kg
[~2017-09-15 00:01] MED LIST changes: +ACET325 PO; +BISA10S PR; +CEFP200 PO; +CVS DISPOSABLE399 ML PR; +Milk Of Ma400 MG/5 M PO; +VANC250 PO
[2017-09-15 00:23] LABS: BASOPHILS ABSOLUTE AUTO 0.04 K/mm3 (0.00-0.23); BASOPHILS PERCENT AUTO 0 % (0-2); EOSINOPHILS ABSOLUTE AUTO 0.15 K/mm3 (0.00-0.68); EOSINOPHILS PERCENT AUTO 1 % (0-6); Hematocrit 38.7 % (33.0-51.0); Hemoglobin 12.9 g/dL (11.5-16.0); IMMATURE GRAN ABSOLUTE AUTO 0.08 K/mm3 (0.00-0.10); IMMATURE GRAN PERCENT AUTO 1 % (0-1); LYMPHOCYTES ABSOLUTE AUTO 4.23 K/mm3 (0.84-5.20); LYMPHOCYTES PERCENT AUTO 40 % (21-46); MONOCYTES ABSOLUTE AUTO 0.98 K/mm3 (0.16-1.47); MONOCYTES PERCENT AUTO 9 % (4-13); Mean Corpuscular HGB 31.9 pg (26.0-34.0); Mean Corpuscular HGB Conc 33.3 g/dL (31.5-36.5); Mean Corpuscular Volume 96 fL (80-100); Mean Platelet Volume 11.1 fL (9.1-12.4); NEUTROPHILS PERCENT AUTO 48 % (41-73); Platelet Count 177 K/mm3 (150-400); RDW Standard Deviation 46.5 fL (35.1-46.3); Red Blood Cell Count 4.04 M/mm3 (3.80-5.20); White Blood Cell Count 10.58 K/mm3 (4.00-11.30)
[2017-09-15 00:38] LABS: Alanine Aminotransfer (ALT/SGP 18 U/L (12-78); Albumin, Blood 2.4 g/dL (3.4-5.0); Albumin/Globulin Ratio 0.7 (0.8-1.8); Alk Phos 166 U/L (50-136); Anion Gap 11 mmol/L (6-16); Aspartate Aminotrans (AST/SGOT 27 U/L (12-37); Bilirubin, Total 0.5 mg/dL (0.1-1.0); Blood Urea Nitrogen 16 mg/dL (8-24); Bun/Creatinine Ratio 15.4 (12.0-20.0); CO2, Blood 30 mmol/L (21-32); Calcium, Blood 7.7 mg/dL (8.5-10.1); Chloride, Blood 91 mmol/L (98-108); Creatinine, Blood 1.04 mg/dL (0.40-1.00); Globulin, Blood 3.6 g/dL (2.2-4.0); Glomerular Filtration Rate 55 (60-); Glucose, Blood 525 mg/dL (70-99); Potassium, Blood 3.3 mmol/L (3.5-5.5); Sodium, Blood 132 mmol/L (136-145); Troponin I <0.015 ng/mL (0.000-0.040)
[2017-09-15 01:52] LABS: Source, Urine Clean Catch
[2017-09-15 01:57] LABS: Appearance, Urine Hazy (Clear); Bilirubin, Urine Neg (Neg); Blood, Urine 3+ (Neg); Color, Urine Yellow (P-Yellow); Glucose Qualitative, Urine 4+ (Neg); Ketones, Urine Neg (Neg); Leukocyte Esterase, Urine 3+ (Neg); Nitrite, Urine Neg (Neg); Protein, Urine 1+ (Neg); Specific Gravity, Urine 1.015 (1.003-1.022); Urobilinogen, Urine NORM (Normal)
[2017-09-15 02:06] LABS: White Blood Cells, Urine TNTC /hpf (0-5)
[2017-09-15 02:07] LABS: Bacteria Mod /hpf; Squamous Epithelial Cells Mod /hpf (Few)
[2017-09-15 05:39] LABS: BASOPHILS ABSOLUTE AUTO 0.04 K/mm3 (0.00-0.23); BASOPHILS PERCENT AUTO 0 % (0-2); EOSINOPHILS ABSOLUTE AUTO 0.15 K/mm3 (0.00-0.68); EOSINOPHILS PERCENT AUTO 2 % (0-6); Hematocrit 35.1 % (33.0-51.0); IMMATURE GRAN ABSOLUTE AUTO 0.07 K/mm3 (0.00-0.10); IMMATURE GRAN PERCENT AUTO 1 % (0-1); LYMPHOCYTES ABSOLUTE AUTO 3.48 K/mm3 (0.84-5.20); LYMPHOCYTES PERCENT AUTO 35 % (21-46); MONOCYTES ABSOLUTE AUTO 1.15 K/mm3 (0.16-1.47); MONOCYTES PERCENT AUTO 12 % (4-13); Mean Corpuscular HGB 31.9 pg (26.0-34.0); Mean Corpuscular HGB Conc 34.2 g/dL (31.5-36.5); Mean Platelet Volume 11.6 fL (9.1-12.4); NEUTROPHILS ABSOLUTE AUTO 5.04 K/mm3 (1.96-9.15); NEUTROPHILS PERCENT AUTO 51 % (41-73); Platelet Count 161 K/mm3 (150-400); RDW Standard Deviation 44.5 fL (35.1-46.3); Red Blood Cell Count 3.76 M/mm3 (3.80-5.20); White Blood Cell Count 9.93 K/mm3 (4.00-11.30)
[2017-09-15 05:43] LABS: Mean Corpuscular Volume 93 fL (80-100)
[2017-09-15 06:13] LABS: Albumin, Blood 2.2 g/dL (3.4-5.0); Albumin/Globulin Ratio 0.7 (0.8-1.8); Bilirubin, Total 0.5 mg/dL (0.1-1.0); Calcium, Blood 7.5 mg/dL (8.5-10.1); Total Protein, Blood 5.2 g/dL (6.4-8.2)
[2017-09-16 06:12] LABS: Anion Gap 8 mmol/L (6-16); Blood Urea Nitrogen 13 mg/dL (8-24); Bun/Creatinine Ratio 14.5 (12.0-20.0); CO2, Blood 31 mmol/L (21-32); Calcium, Blood 7.5 mg/dL (8.5-10.1); Chloride, Blood 103 mmol/L (98-108); Glomerular Filtration Rate >60 (60-); Glucose, Blood 195 mg/dL (70-99); Potassium, Blood 3.2 mmol/L (3.5-5.5); Sodium, Blood 142 mmol/L (136-145)
[2017-09-16] MEDS ORDERED: TOUJEO SOL300 UNIT/1 SC (11:09)
[2017-09-16] MEDS ORDERED: Multivitamin1 EAC1 PO (11:10)
[2017-09-16] MEDS ORDERED: LOSARTAN-HCTZ1 EAC1 PO (11:10)
== END 2017-09-16 11:44 | disposition home or self-care (01) ==
LOC: ER 00:01 → ERHOLD 03:16 → ER 03:16 → MEDS 03:16 → ERHOLD 03:16 → MEDS 16:50
PROVIDERS: Emergency Medicine; Internal Medicine
DX: R55 Syncope and collapse (principal); E86.0 Dehydration; E11.22 Type 2 diabetes mellitus with diabetic chronic kidney disease; I12.9 Hypertensive chronic kidney disease with stage 1 through stage 4 chronic kidney disease, or unspecified chronic kidney disease; N18.9 Chronic kidney disease, unspecified; E11.65 Type 2 diabetes mellitus with hyperglycemia; G47.30 Sleep apnea, unspecified; M35.3 Polymyalgia rheumatica; N39.0 Urinary tract infection, site not specified; E66.01 Morbid (severe) obesity due to excess calories; I49.8 Other specified cardiac arrhythmias; E78.00 Pure hypercholesterolemia, unspecified; Z79.82 Long term (current) use of aspirin; Z79.899 Other long term (current) drug therapy; Z79.4 Long term (current) use of insulin; Z88.5 Allergy status to narcotic agent; Z88.8 Allergy status to other drugs, medicaments and biological substances; Z68.36 Body mass index [BMI] 36.0-36.9, adult
CPT/HCPCS: 36415; 70450; 71045; 72170; 80048; 80053; 81001; 82947; 83605; 84484; 85025; 87077; 87086; 87186; 93005; 93010; 96361; 96365; 96372; 96375; 96376; 99285; G0378; J0360; J0461; J0696; J1650; J1815; J3480; J7030

== ENCOUNTER 2017-09-26 15:25 | Inpatient (IN) | payer MEDICARE, BC, OTHER ==
[~2017-09-26] VITALS: Ht 162.6 cm; Wt 115.5 kg
[~2017-09-26 15:25] MED LIST changes: +Multivitamin1 EAC1 PO
[2017-09-26 16:10] LABS: BASOPHILS ABSOLUTE AUTO 0.02 K/mm3 (0.00-0.23); BASOPHILS PERCENT AUTO 0 % (0-2); EOSINOPHILS ABSOLUTE AUTO 0.16 K/mm3 (0.00-0.68); EOSINOPHILS PERCENT AUTO 1 % (0-6); Hematocrit 37.6 % (33.0-51.0); Hemoglobin 12.6 g/dL (11.5-16.0); IMMATURE GRAN ABSOLUTE AUTO 0.02 K/mm3 (0.00-0.10); IMMATURE GRAN PERCENT AUTO 0 % (0-1); LYMPHOCYTES ABSOLUTE AUTO 3.13 K/mm3 (0.84-5.20); LYMPHOCYTES PERCENT AUTO 28 % (21-46); MONOCYTES ABSOLUTE AUTO 1.17 K/mm3 (0.16-1.47); MONOCYTES PERCENT AUTO 11 % (4-13); Mean Corpuscular HGB 31.8 pg (26.0-34.0); Mean Corpuscular HGB Conc 33.5 g/dL (31.5-36.5); Mean Corpuscular Volume 95 fL (80-100); Mean Platelet Volume 11.3 fL (9.1-12.4); NEUTROPHILS ABSOLUTE AUTO 6.69 K/mm3 (1.96-9.15); NEUTROPHILS PERCENT AUTO 60 % (41-73); Platelet Count 129 K/mm3 (150-400); RDW Coefficient Variation 13.3 % (11.7-14.2); RDW Standard Deviation 47.1 fL (35.1-46.3); Red Blood Cell Count 3.96 M/mm3 (3.80-5.20); White Blood Cell Count 11.19 K/mm3 (4.00-11.30)
[2017-09-26 16:30] LABS: Albumin, Blood 2.5 g/dL (3.4-5.0); Albumin/Globulin Ratio 0.8 (0.8-1.8); Bilirubin, Total 0.9 mg/dL (0.1-1.0); Bun/Creatinine Ratio 10.7 (12.0-20.0); Calcium, Blood 7.5 mg/dL (8.5-10.1); Creatinine, Blood 1.03 mg/dL (0.40-1.00); Potassium, Blood 2.8 mmol/L (3.5-5.5); Total Protein, Blood 5.5 g/dL (6.4-8.2)
[2017-09-26] MEDS ORDERED: AMLO5 PO (16:30)
[2017-09-26 16:51] LABS: International Normalized Ratio 1.21; Prothrombin Time Results 12.7 Sec (9.7-11.5)
[2017-09-26] MEDS ORDERED: MAGOXI400 PO (23:29)
[2017-09-26] MEDS ORDERED: POTCHL20ER PO (23:30)
[2017-09-27 05:18] LABS: BASOPHILS ABSOLUTE AUTO 0.02 K/mm3 (0.00-0.23); BASOPHILS PERCENT AUTO 0 % (0-2); EOSINOPHILS ABSOLUTE AUTO 0.26 K/mm3 (0.00-0.68); EOSINOPHILS PERCENT AUTO 3 % (0-6); Hematocrit 34.5 % (33.0-51.0); Hemoglobin 11.5 g/dL (11.5-16.0); IMMATURE GRAN ABSOLUTE AUTO 0.01 K/mm3 (0.00-0.10); IMMATURE GRAN PERCENT AUTO 0 % (0-1); LYMPHOCYTES ABSOLUTE AUTO 2.97 K/mm3 (0.84-5.20); LYMPHOCYTES PERCENT AUTO 31 % (21-46); MONOCYTES ABSOLUTE AUTO 1.18 K/mm3 (0.16-1.47); MONOCYTES PERCENT AUTO 12 % (4-13); Mean Corpuscular HGB 31.7 pg (26.0-34.0); Mean Corpuscular HGB Conc 33.3 g/dL (31.5-36.5); Mean Corpuscular Volume 95 fL (80-100); Mean Platelet Volume 11.7 fL (9.1-12.4); NEUTROPHILS ABSOLUTE AUTO 5.06 K/mm3 (1.96-9.15); NEUTROPHILS PERCENT AUTO 53 % (41-73); Platelet Count 124 K/mm3 (150-400); RDW Coefficient Variation 13.3 % (11.7-14.2); RDW Standard Deviation 46.3 fL (35.1-46.3); Red Blood Cell Count 3.63 M/mm3 (3.80-5.20)
[2017-09-27 05:38] LABS: Bun/Creatinine Ratio 9.3 (12.0-20.0); Creatinine, Blood 1.29 mg/dL (0.40-1.00); Magnesium, Blood 1.4 mg/dL (1.6-2.4); Potassium, Blood 2.8 mmol/L (3.5-5.5)
[2017-09-27 05:55] LABS: Source, Urine Clean Catch
[2017-09-27 05:56] LABS: Bilirubin, Urine Neg (Neg); Blood, Urine Neg (Neg); Glucose Qualitative, Urine 1+ (Neg); Ketones, Urine Neg (Neg); Leukocyte Esterase, Urine 2+ (Neg); Nitrite, Urine Neg (Neg); Protein, Urine 2+ (Neg); Specific Gravity, Urine 1.015 (1.003-1.022); Urobilinogen, Urine NORM (Normal)
[2017-09-27 06:23] LABS: Appearance, Urine Hazy (Clear); Color, Urine Yellow (P-Yellow)
[2017-09-27 06:27] LABS: Red Blood Cells, Urine 0-2 /hpf (0-2)
[2017-09-27 06:28] LABS: Squamous Epithelial Cells Few /hpf (Few)
[2017-09-27 06:29] LABS: Amorphous Light (0-Heavy); Bacteria Rare /hpf
[2017-09-28 05:11] LABS: BASOPHILS ABSOLUTE AUTO 0.02 K/mm3 (0.00-0.23); BASOPHILS PERCENT AUTO 0 % (0-2); EOSINOPHILS ABSOLUTE AUTO 0.37 K/mm3 (0.00-0.68); EOSINOPHILS PERCENT AUTO 5 % (0-6); Hematocrit 33.4 % (33.0-51.0); Hemoglobin 11.2 g/dL (11.5-16.0); IMMATURE GRAN ABSOLUTE AUTO 0.01 K/mm3 (0.00-0.10); IMMATURE GRAN PERCENT AUTO 0 % (0-1); LYMPHOCYTES ABSOLUTE AUTO 2.63 K/mm3 (0.84-5.20); LYMPHOCYTES PERCENT AUTO 36 % (21-46); MONOCYTES ABSOLUTE AUTO 1.08 K/mm3 (0.16-1.47); MONOCYTES PERCENT AUTO 15 % (4-13); Mean Corpuscular HGB 31.5 pg (26.0-34.0); Mean Corpuscular HGB Conc 33.5 g/dL (31.5-36.5); Mean Corpuscular Volume 94 fL (80-100); Mean Platelet Volume 11.5 fL (9.1-12.4); NEUTROPHILS ABSOLUTE AUTO 3.27 K/mm3 (1.96-9.15); NEUTROPHILS PERCENT AUTO 44 % (41-73); Platelet Count 134 K/mm3 (150-400); RDW Coefficient Variation 13.2 % (11.7-14.2); RDW Standard Deviation 45.8 fL (35.1-46.3); Red Blood Cell Count 3.56 M/mm3 (3.80-5.20); White Blood Cell Count 7.38 K/mm3 (4.00-11.30)
[2017-09-28 05:23] LABS: International Normalized Ratio 1.23; Prothrombin Time Results 12.9 Sec (9.7-11.5)
[2017-09-28 05:34] LABS: Calcium, Blood 6.8 mg/dL (8.5-10.1); Creatinine, Blood 1.57 mg/dL (0.40-1.00); Magnesium, Blood 1.5 mg/dL (1.6-2.4); Potassium, Blood 3.1 mmol/L (3.5-5.5)
[2017-09-29 05:42] LABS: Bun/Creatinine Ratio 6.4 (12.0-20.0); Creatinine, Blood 1.4 mg/dL (0.40-1.00); Magnesium, Blood 1.5 mg/dL (1.6-2.4); Potassium, Blood 3.2 mmol/L (3.5-5.5)
[2017-09-29 15:00] LABS: Test Name CLTOX
[2017-09-30 05:20] LABS: BASOPHILS ABSOLUTE AUTO 0.04 K/mm3 (0.00-0.23); BASOPHILS PERCENT AUTO 1 % (0-2); EOSINOPHILS ABSOLUTE AUTO 0.49 K/mm3 (0.00-0.68); EOSINOPHILS PERCENT AUTO 7 % (0-6); Hematocrit 36.6 % (33.0-51.0); IMMATURE GRAN ABSOLUTE AUTO 0.07 K/mm3 (0.00-0.10); IMMATURE GRAN PERCENT AUTO 1 % (0-1); LYMPHOCYTES PERCENT AUTO 47 % (21-46); MONOCYTES ABSOLUTE AUTO 1.05 K/mm3 (0.16-1.47); MONOCYTES PERCENT AUTO 15 % (4-13); Mean Corpuscular HGB 31.1 pg (26.0-34.0); Mean Corpuscular HGB Conc 32.8 g/dL (31.5-36.5); Mean Corpuscular Volume 95 fL (80-100); Mean Platelet Volume 11.3 fL (9.1-12.4); NEUTROPHILS ABSOLUTE AUTO 2.16 K/mm3 (1.96-9.15); NEUTROPHILS PERCENT AUTO 30 % (41-73); Platelet Count 176 K/mm3 (150-400); RDW Coefficient Variation 13.4 % (11.7-14.2); RDW Standard Deviation 46.9 fL (35.1-46.3); Red Blood Cell Count 3.86 M/mm3 (3.80-5.20); White Blood Cell Count 7.21 K/mm3 (4.00-11.30)
[2017-09-30 05:44] LABS: Bun/Creatinine Ratio 6.1 (12.0-20.0); Calcium, Blood 7.4 mg/dL (8.5-10.1); Creatinine, Blood 1.14 mg/dL (0.40-1.00); Magnesium, Blood 1.7 mg/dL (1.6-2.4); Potassium, Blood 3.5 mmol/L (3.5-5.5)
[2017-09-30] MEDS ORDERED: ACET500 PO (10:31)
[2017-09-30] MEDS ORDERED: SACC250C PO (10:32)
[2017-09-30] MEDS ORDERED: VANC125 (10:38)
== END 2017-09-30 12:39 | disposition home or self-care (01) | DRG 372 ==
LOC: ER 15:25 → MEDS 17:29 → ENPENDDIS 09-30 09:30 → MEDS 09-30 12:39
PROVIDERS: Internal Medicine; Internal Medicine Gastroenterology; Internal Medicine Infectious Disease; Physician Assistant
DX: A04.71 Enterocolitis due to Clostridium difficile, recurrent (principal); C85.10 Unspecified B-cell lymphoma, unspecified site; Z68.41 Body mass index [BMI] 40.0-44.9, adult; N17.9 Acute kidney failure, unspecified; E87.6 Hypokalemia; E86.0 Dehydration; E11.65 Type 2 diabetes mellitus with hyperglycemia; Z79.4 Long term (current) use of insulin; F32.9 Major depressive disorder, single episode, unspecified; G47.33 Obstructive sleep apnea (adult) (pediatric); M35.3 Polymyalgia rheumatica; I12.9 Hypertensive chronic kidney disease with stage 1 through stage 4 chronic kidney disease, or unspecified chronic kidney disease; E03.9 Hypothyroidism, unspecified; E83.42 Hypomagnesemia; N18.3 Chronic kidney disease, stage 3 (moderate); E11.22 Type 2 diabetes mellitus with diabetic chronic kidney disease; E66.01 Morbid (severe) obesity due to excess calories
CPT/HCPCS: 36415; 74176; 80048; 80053; 81001; 82947; 83605; 83735; 85025; 85610; 87040; 87493; 87497; 93005; 93010; 94660; 94760; 94762; 96361; 96365; 97110; 97162; 97530; 99285; G8978; G8979; J1650; J1815; J2001; J3475; J3480; J7030; J7040; J7060

== ENCOUNTER → 2017-10-22 | Outpatient (CLI) | payer MEDICARE, BC, OTHER ==
[~2017-10-22] MED LIST changes: +ACET500 PO; +AMLO5 PO; +MAGOXI400 PO; +POTCHL20ER PO; +SACC250C PO; +VANC125
== END | disposition home or self-care (01) ==
LOC: LAB 12:34 → LAB SHORT 12:34
DX: N39.0 Urinary tract infection, site not specified (principal)
CPT/HCPCS: 87077; 87086; 87186

== ENCOUNTER 2017-12-29 16:39 | Emergency (ER) | payer MEDICARE, BC, OTHER ==
[~2017-12-29] VITALS: Ht 162.6 cm; Wt 111.1 kg
[2017-12-29 17:38] LABS: BASOPHILS ABSOLUTE AUTO 0.02 K/mm3 (0.00-0.23); BASOPHILS PERCENT AUTO 0 % (0-2); EOSINOPHILS ABSOLUTE AUTO 0.29 K/mm3 (0.00-0.68); EOSINOPHILS PERCENT AUTO 3 % (0-6); Hematocrit 38.5 % (33.0-51.0); Hemoglobin 13.1 g/dL (11.5-16.0); IMMATURE GRAN ABSOLUTE AUTO 0.06 K/mm3 (0.00-0.10); IMMATURE GRAN PERCENT AUTO 1 % (0-1); LYMPHOCYTES ABSOLUTE AUTO 3.19 K/mm3 (0.84-5.20); LYMPHOCYTES PERCENT AUTO 29 % (21-46); MONOCYTES ABSOLUTE AUTO 1.27 K/mm3 (0.16-1.47); MONOCYTES PERCENT AUTO 11 % (4-13); Mean Corpuscular HGB 30.7 pg (26.0-34.0); Mean Corpuscular Volume 90 fL (80-100); Mean Platelet Volume 11.1 fL (9.1-12.4); NEUTROPHILS ABSOLUTE AUTO 6.34 K/mm3 (1.96-9.15); NEUTROPHILS PERCENT AUTO 57 % (41-73); Platelet Count 196 K/mm3 (150-400); RDW Coefficient Variation 14.4 % (11.7-14.2); RDW Standard Deviation 47.7 fL (35.1-46.3); Red Blood Cell Count 4.27 M/mm3 (3.80-5.20); White Blood Cell Count 11.17 K/mm3 (4.00-11.30)
[2017-12-29 17:51] LABS: Albumin, Blood 2.9 g/dL (3.4-5.0); Albumin/Globulin Ratio 0.8 (0.8-1.8); Bilirubin, Total 0.5 mg/dL (0.1-1.0); Bun/Creatinine Ratio 9.8 (12.0-20.0); Calcium, Blood 8.6 mg/dL (8.5-10.1); Creatinine, Blood 1.02 mg/dL (0.40-1.00); Globulin, Blood 3.5 g/dL (2.2-4.0); Potassium, Blood 3.2 mmol/L (3.5-5.5); Total Protein, Blood 6.4 g/dL (6.4-8.2)
[2017-12-29] MEDS ORDERED: Vancocin HCl125 MG PO (20:46)
[2017-12-29] MEDS ORDERED: K-Dur20 MEQ PO (20:46)
== END 2017-12-29 20:59 | disposition home or self-care (01) ==
LOC: ER 16:39
PROVIDERS: Emergency Medicine
DX: A04.71 Enterocolitis due to Clostridium difficile, recurrent (principal); E87.6 Hypokalemia; Z88.5 Allergy status to narcotic agent; Z88.8 Allergy status to other drugs, medicaments and biological substances; Z79.899 Other long term (current) drug therapy; Z79.4 Long term (current) use of insulin; Z79.2 Long term (current) use of antibiotics; Z79.82 Long term (current) use of aspirin; E11.9 Type 2 diabetes mellitus without complications; E78.00 Pure hypercholesterolemia, unspecified; I10 Essential (primary) hypertension
CPT/HCPCS: 36415; 74176; 80053; 85025; 87493; 96360; 99284-25; J7030

== ENCOUNTER → 2019-02-06 | Outpatient (CLI) | payer MEDICARE, BC, OTHER ==
[~2019-02-06] MED LIST changes: +K-Dur20 MEQ PO; +Vancocin HCl125 MG PO
[2019-02-06 16:29] LABS: Protein, Urine Quantitative 252.9 mg/dL (0.0-11.9)
== END ==
LOC: LAB SHORT 03:30 → LAB 03:30
PROVIDERS: Internal Medicine Nephrology
DX: E55.9 Vitamin D deficiency, unspecified (principal); N18.3 Chronic kidney disease, stage 3 (moderate); D63.1 Anemia in chronic kidney disease; N25.81 Secondary hyperparathyroidism of renal origin; E78.00 Pure hypercholesterolemia, unspecified; R76.9 Abnormal immunological finding in serum, unspecified; R94.5 Abnormal results of liver function studies; R94.6 Abnormal results of thyroid function studies
CPT/HCPCS: 81050; 82043; 82570; 84156; 86335

== ENCOUNTER → 2019-04-12 | Outpatient (CLI) | payer MEDICARE, BC, OTHER ==
[2019-04-12 12:44] LABS: Eosinophils-Raw #,Urine 8
[2019-04-12 12:46] LABS: White Blood Cells Urine 50-100 /hpf (0-5)
[2019-04-12 13:11] LABS: Protein, Urine Quantitative 688.8 mg/dL (0.0-11.9)
== END | disposition home or self-care (01) ==
LOC: LAB 08:40 → LAB SHORT 08:40 → LAB FUT 04-10 09:45
PROVIDERS: Internal Medicine Nephrology
DX: E11.22 Type 2 diabetes mellitus with diabetic chronic kidney disease (principal); N18.3 Chronic kidney disease, stage 3 (moderate); D63.1 Anemia in chronic kidney disease; E11.21 Type 2 diabetes mellitus with diabetic nephropathy; N25.81 Secondary hyperparathyroidism of renal origin; E55.9 Vitamin D deficiency, unspecified; R76.9 Abnormal immunological finding in serum, unspecified; R94.5 Abnormal results of liver function studies; R94.6 Abnormal results of thyroid function studies
CPT/HCPCS: 81050; 82043; 82570; 84156; 87205

== ENCOUNTER 2019-07-28 13:58 | Emergency (ER) | payer MEDICARE, BC, OTHER ==
[~2019-07-28] VITALS: Ht 162.6 cm; Wt 120.7 kg
[2019-07-28 14:29] LABS: BASOPHILS ABSOLUTE AUTO 0.02 K/mm3 (0.00-0.23); BASOPHILS PERCENT AUTO 0 % (0-2); EOSINOPHILS ABSOLUTE AUTO 0.14 K/mm3 (0.00-0.68); EOSINOPHILS PERCENT AUTO 2 % (0-6); Hematocrit 35.2 % (33.0-51.0); Hemoglobin 11.7 g/dL (11.5-16.0); IMMATURE GRAN ABSOLUTE AUTO 0.08 K/mm3 (0.00-0.10); IMMATURE GRAN PERCENT AUTO 1 % (0-1); LYMPHOCYTES ABSOLUTE AUTO 2.36 K/mm3 (0.84-5.20); LYMPHOCYTES PERCENT AUTO 29 % (21-46); MONOCYTES ABSOLUTE AUTO 0.75 K/mm3 (0.16-1.47); MONOCYTES PERCENT AUTO 9 % (4-13); Mean Corpuscular HGB 30.7 pg (26.0-34.0); Mean Corpuscular HGB Conc 33.2 g/dL (31.5-36.5); Mean Corpuscular Volume 92 fL (80-100); Mean Platelet Volume 11.4 fL (9.1-12.4); NEUTROPHILS ABSOLUTE AUTO 4.75 K/mm3 (1.96-9.15); NEUTROPHILS PERCENT AUTO 59 % (41-73); Platelet Count 181 K/mm3 (150-400); RDW Coefficient Variation 13.9 % (11.7-14.2); RDW Standard Deviation 46.9 fL (35.1-46.3); Red Blood Cell Count 3.81 M/mm3 (3.80-5.20)
[2019-07-28 14:47] LABS: Albumin, Blood 2.2 g/dL (3.4-5.0); Albumin/Globulin Ratio 0.7 (0.8-1.8); Bilirubin, Total 0.5 mg/dL (0.1-1.0); Bun/Creatinine Ratio 17.8 (12.0-20.0); Calcium, Blood 8.5 mg/dL (8.5-10.1); Creatinine, Blood 1.29 mg/dL (0.40-1.00); Globulin, Blood 3.2 g/dL (2.2-4.0); Potassium, Blood 3.7 mmol/L (3.5-5.5); Total Protein, Blood 5.4 g/dL (6.4-8.2)
== END 2019-07-28 19:40 | disposition home or self-care (01) ==
LOC: ER 13:58
PROVIDERS: Physician Assistant
DX: I10 Essential (primary) hypertension (principal); E11.9 Type 2 diabetes mellitus without complications; E78.00 Pure hypercholesterolemia, unspecified; Z88.5 Allergy status to narcotic agent; Z88.8 Allergy status to other drugs, medicaments and biological substances; Z79.899 Other long term (current) drug therapy; Z79.4 Long term (current) use of insulin; Z79.82 Long term (current) use of aspirin
CPT/HCPCS: 36415; 80053; 83880; 85025; 93005; 93010; 99283-25; J0360

== ENCOUNTER 2019-08-04 08:07 | Inpatient (IN) | payer MEDICARE, BC, OTHER ==
[~2019-08-04] VITALS: Ht 162.6 cm; Wt 121.7 kg
[~2019-08-04 08:07] MED LIST changes: -ASPI81CH PO; -INSU100I6 SC; -LEVSOD75 PO
[2019-08-04 08:42] LABS: BASOPHILS ABSOLUTE AUTO 0.04 K/mm3 (0.00-0.23); BASOPHILS PERCENT AUTO 0 % (0-2); EOSINOPHILS ABSOLUTE AUTO 0.23 K/mm3 (0.00-0.68); EOSINOPHILS PERCENT AUTO 2 % (0-6); Hemoglobin 12.3 g/dL (11.5-16.0); IMMATURE GRAN ABSOLUTE AUTO 0.16 K/mm3 (0.00-0.10); IMMATURE GRAN PERCENT AUTO 1 % (0-1); LYMPHOCYTES ABSOLUTE AUTO 4.23 K/mm3 (0.84-5.20); LYMPHOCYTES PERCENT AUTO 28 % (21-46); MONOCYTES ABSOLUTE AUTO 1.21 K/mm3 (0.16-1.47); MONOCYTES PERCENT AUTO 8 % (4-13); Mean Corpuscular HGB 30.4 pg (26.0-34.0); Mean Corpuscular HGB Conc 33.2 g/dL (31.5-36.5); Mean Corpuscular Volume 92 fL (80-100); Mean Platelet Volume 11.8 fL (9.1-12.4); NEUTROPHILS PERCENT AUTO 61 % (41-73); Platelet Count 229 K/mm3 (150-400); RDW Coefficient Variation 14.2 % (11.7-14.2); RDW Standard Deviation 47.8 fL (35.1-46.3); Red Blood Cell Count 4.04 M/mm3 (3.80-5.20); White Blood Cell Count 14.87 K/mm3 (4.00-11.30)
[2019-08-04 08:46] LABS: PCO2 Arterial 45.3 mmHg (35-45); pH Blood Arterial 7.46 (7.35-7.45)
[2019-08-04 08:48] LABS: PO2 Arterial 46.6 mmHg (80-100)
[2019-08-04 09:03] LABS: Alanine Aminotransfer (ALT/SGP 24 U/L (12-78); Albumin, Blood 2.4 g/dL (3.4-5.0); Albumin/Globulin Ratio 0.7 (0.8-1.8); Alk Phos 105 U/L (50-136); Anion Gap 5 mmol/L (6-16); Aspartate Aminotrans (AST/SGOT 21 U/L (12-37); Bilirubin, Total 0.7 mg/dL (0.1-1.0); Blood Urea Nitrogen 27 mg/dL (8-24); Bun/Creatinine Ratio 18.1 (12.0-20.0); CO2, Blood 32 mmol/L (21-32); Calcium, Blood 8.8 mg/dL (8.5-10.1); Chloride, Blood 100 mmol/L (98-108); Creatinine, Blood 1.49 mg/dL (0.40-1.00); Globulin, Blood 3.4 g/dL (2.2-4.0); Glomerular Filtration Rate 36 (60-); Glucose, Blood 320 mg/dL (70-99); Potassium, Blood 4.1 mmol/L (3.5-5.5); Sodium, Blood 137 mmol/L (136-145); Total Protein, Blood 5.8 g/dL (6.4-8.2); Troponin I <0.015 ng/mL (0.000-0.040)
[2019-08-04] MEDS ORDERED: AMLO5 PO (09:58)
[2019-08-04] MEDS ORDERED: Amoxicillin500 MG PO ×2 (09:58→17:11)
[2019-08-04] MEDS ORDERED: Catapres0.2 MG PO (09:58)
[2019-08-04] MEDS ORDERED: CIPDEXSU LEFTEAR (09:59)
[2019-08-04] MEDS ORDERED: Bumetanide2 MG PO (09:59)
[2019-08-04] MEDS ORDERED: GABA100 PO (09:59)
[2019-08-04] MEDS ORDERED: BIOTIN5 MG PO (10:00)
[2019-08-04 10:22] LABS: Adenovirus Not Detected (NOT DETECT); Bordetella pertussis Not Detected (NOT DETECT); Chlamydophila pneumoniae Not Detected (NOT DETECT); Coronavirus 229E Not Detected (NOT DETECT); Coronavirus HKU1 Not Detected (NOT DETECT); Coronavirus NL63 Not Detected (NOT DETECT); Coronavirus OC43 Not Detected (NOT DETECT); Human Metapneumovirus Not Detected (NOT DETECT); Human Rhinovirus/Enterovirus Not Detected (NOT DETECT); Influenza A Not Detected (NOT DETECT); Influenza A/2009-H1 Not Detected (NOT DETECT); Influenza A/H1 Not Detected (NOT DETECT); Influenza A/H3 Not Detected (NOT DETECT); Influenza B Not Detected (NOT DETECT); Mycoplasma pneumoniae Not Detected (NOT DETECT); Parainfluenza Virus 1 Not Detected (NOT DETECT); Parainfluenza Virus 2 Not Detected (NOT DETECT); Parainfluenza Virus 3 Not Detected (NOT DETECT); Parainfluenza Virus 4 Not Detected (NOT DETECT); Respiratory Syncytial Virus Detected (NOT DETECT)
[2019-08-04] MEDS ORDERED: EDARBI40 MG PO (12:13)
[2019-08-04] MEDS ORDERED: HYDR10 PO (12:14)
[2019-08-04] MEDS ORDERED: BUPROPION HCL150 MG PO (12:17)
[2019-08-04] MEDS ORDERED: DULO60 PO (12:18)
[2019-08-04] MEDS ORDERED: LEVSOD100 PO (12:18)
[2019-08-04] MEDS ORDERED: CALC.25 PO (12:19)
[2019-08-04] MEDS ORDERED: FUROSEMIDE40 MG PO (12:20)
[2019-08-04] MEDS ORDERED: Aspir 8181 MG PO (12:21)
[2019-08-04] MEDS ORDERED: MELA3 PO (12:23)
[2019-08-04] MEDS ORDERED: FAMO20 PO ×2 (12:23→17:08)
[2019-08-04] MEDS ORDERED: Humalog100 UNIT/3 SC (13:16)
[2019-08-04] MEDS ORDERED: TOUJEO SOL300 UNIT/1 SC (13:16)
[2019-08-04] MEDS ORDERED: METO100ER PO (13:19)
--- NOTE | 2019-08-04 15:57 | NUR ---
Echocardiogram completed.
[2019-08-04] MEDS ORDERED: THERA-D2000 UNIT PO (16:54)
[2019-08-04] MEDS ORDERED: THERA1 EACH PO (16:54)
[2019-08-04] MEDS ORDERED: LOSA25 PO (16:55)
[2019-08-04] MEDS ORDERED: K-Dur20 MEQ PO (16:57)
[2019-08-04] MEDS ORDERED: Acidophilus1 EAC1 PO (17:00)
[2019-08-04] MEDS ORDERED: Vitamin B-Comp1 EACH PO (17:07)
[2019-08-04] MEDS ORDERED: MECL12.5 PO (17:10)
[2019-08-04] MEDS ORDERED: BENZ100A PO (17:12)
--- NOTE | 2019-08-04 19:20 | NUR ---
SHIFT SUMMARY PT AXO, PLEASANT AND COOPERATIVE WITH CARE. ADMITTED THIS SHIFT. PT ARRIVED TO ROOM AT 1415 VIA ER BED. URINARY DEVICE SET TO SUCTION, CHARGE NURSES AWARE WHO CONTACTED ER NURSE IN ORDER TO RESEARCH DEVICE AND PROTOCOL. PT'S SPOUSE INSISTED THAT THIS NURSE RETURN DEVICE TO SUCTION ON LOW, DESPITE NOT HAVING THIS INFORMATION FROM ER NURSE. TURN Q2. PT REFUSED OOB FOR ADMISSION WEIGHT. IV PATENT AND SALINE LOCKED.
--- NOTE | 2019-08-05 05:00 | NUR ---
SHIFT SUMMARY ADMITTED FOR ACUTE EXACERBATION OF CHF. DNR CODE. POSITIVE RESPIRATORY PANEL FOR RSV, RECENT HX OF CDIFF = DROPLET/CONTACT PRECAUTIONS. RECENT EAR INFECTION. 4 LPM O2 HERE, ONLY USES A CPAP AT PM WHEN HOME. PLAN IS TO DIURESE THIS PT, CONTINUE RESPIRATORY TX'S, ECHO, HOME O2 EVAL, DC W/HH. STAGE 2 PRESSURE ULCER ON COCCYX. 1200 ML FLUID RESTRICTION. A URINE COLLECTION DEVICE IS IN PLACE COLLECTING HER URINE. HX: CKD3, ANGIE, NON HODGKINS LYMPHOMA, CHRONIC BLE EDEMA, MORBID OBESITY, DM2, CDIFF, FALLS, NEUROPATHY, HTN.
[2019-08-05 05:01] LABS: BASOPHILS ABSOLUTE AUTO 0.02 K/mm3 (0.00-0.23); BASOPHILS PERCENT AUTO 0 % (0-2); EOSINOPHILS PERCENT AUTO 0 % (0-6); Hematocrit 31.9 % (33.0-51.0); Hemoglobin 10.6 g/dL (11.5-16.0); IMMATURE GRAN ABSOLUTE AUTO 0.16 K/mm3 (0.00-0.10); IMMATURE GRAN PERCENT AUTO 1 % (0-1); LYMPHOCYTES ABSOLUTE AUTO 2.24 K/mm3 (0.84-5.20); LYMPHOCYTES PERCENT AUTO 18 % (21-46); MONOCYTES ABSOLUTE AUTO 0.72 K/mm3 (0.16-1.47); MONOCYTES PERCENT AUTO 6 % (4-13); Mean Corpuscular HGB 30.2 pg (26.0-34.0); Mean Corpuscular HGB Conc 33.2 g/dL (31.5-36.5); Mean Corpuscular Volume 91 fL (80-100); Mean Platelet Volume 11.5 fL (9.1-12.4); NEUTROPHILS ABSOLUTE AUTO 9.38 K/mm3 (1.96-9.15); NEUTROPHILS PERCENT AUTO 75 % (41-73); Platelet Count 179 K/mm3 (150-400); RDW Coefficient Variation 14.1 % (11.7-14.2); RDW Standard Deviation 46.7 fL (35.1-46.3); Red Blood Cell Count 3.51 M/mm3 (3.80-5.20); White Blood Cell Count 12.52 K/mm3 (4.00-11.30)
[2019-08-05 05:20] LABS: Albumin, Blood 2.1 g/dL (3.4-5.0); Albumin/Globulin Ratio 0.6 (0.8-1.8); Bilirubin, Total 0.4 mg/dL (0.1-1.0); Calcium, Blood 8.6 mg/dL (8.5-10.1); Creatinine, Blood 1.67 mg/dL (0.40-1.00); Globulin, Blood 3.3 g/dL (2.2-4.0); Total Protein, Blood 5.4 g/dL (6.4-8.2)
--- NOTE | 2019-08-05 08:51 | NUR ---
MED REC VERIFIED MEDICATIONS WITH PT. SHE SAYS THAT SHE RECEIVES MEDICATIONS FROM [employer] AND ALSO FROM [employer]. MED REC COMPLETE PER PT VERIFICATION AND LIST FROM GIOVANA VILLARREAL
--- NOTE | 2019-08-05 16:28 | NUR ---
SHIFT SUMMARY PT RESTING QUIETLY AT START OF SHIFT. WOKE EASILY FOR CARE. PT ADMITTED FOR NEW DX OF CHF. PT ON 12OOcc FR WITH STRICT I&O'S. SUCTION CATHETER IN PLACE FROM ER. PT IN DROPLET ISO FOR RSV. RECEIVING ABX FOR L EAR INFECTION. PT REPORT, PT BED BOUND D/T WEAKNESS. PT REPORTED THAT SHE WAS GETTING AROUND AT HOME USING FWW AND SBA FROM , BUT BECAME TOO WEAK. HX FALLS AT HOME R/T WEAKNESS. P/T IN TODAY TO WORK WITH PT. PT CURRENTLY ON 3L NC WITH BIOX AT 97%. PT C/O O2 DRYING OUT HER NOSE. PT NORMALLY ON RA. PT IS A DIABETIC; SS INSULIN HELD EARLIER D/T CNI. PT'S HERE THIS AM AND WILL RETURN THIS EVENING. PT SLEEPING AT THIS TIME, NO S/SX OF DISTRESS NOTED. CALL LT IN REACH.
[2019-08-06 04:52] LABS: BASOPHILS ABSOLUTE AUTO 0.06 K/mm3 (0.00-0.23); BASOPHILS PERCENT AUTO 0 % (0-2); EOSINOPHILS ABSOLUTE AUTO 0.12 K/mm3 (0.00-0.68); EOSINOPHILS PERCENT AUTO 1 % (0-6); Hematocrit 37.1 % (33.0-51.0); Hemoglobin 12.5 g/dL (11.5-16.0); IMMATURE GRAN ABSOLUTE AUTO 0.25 K/mm3 (0.00-0.10); IMMATURE GRAN PERCENT AUTO 1 % (0-1); LYMPHOCYTES ABSOLUTE AUTO 3.75 K/mm3 (0.84-5.20); LYMPHOCYTES PERCENT AUTO 21 % (21-46); MONOCYTES ABSOLUTE AUTO 1.56 K/mm3 (0.16-1.47); MONOCYTES PERCENT AUTO 9 % (4-13); Mean Corpuscular HGB 30.8 pg (26.0-34.0); Mean Corpuscular HGB Conc 33.7 g/dL (31.5-36.5); Mean Corpuscular Volume 91 fL (80-100); Mean Platelet Volume 11.5 fL (9.1-12.4); NEUTROPHILS ABSOLUTE AUTO 12.14 K/mm3 (1.96-9.15); NEUTROPHILS PERCENT AUTO 68 % (41-73); Platelet Count 253 K/mm3 (150-400); RDW Coefficient Variation 14.2 % (11.7-14.2); RDW Standard Deviation 47.8 fL (35.1-46.3); Red Blood Cell Count 4.06 M/mm3 (3.80-5.20); White Blood Cell Count 17.88 K/mm3 (4.00-11.30)
--- NOTE | 2019-08-06 04:55 | NUR ---
SHIFT SUMMARY HAS RESTED WELL THIS SHIFT AFTER TAKING AMBIEN. SPOUSE STATES THAT HER WHEEZING HAS GOTTEN WORSE, PT STATES THAT IT GOES AWAY WHEN SHE COUGHES. PT ASLED TO COUGH, AND WHEEZING CLEARED. CONFUSION NOTED, BED ALARM IN PLACE. DENIES PAIN, DISCOMFORT, OR FURTHER NEEDS AT THIS TIME. SAFETY MEASURES IN PLACE. WILL GIVE HAND OFF TO ONCOMING SHIFT USING SBAR DURING BEDSIDE REPORT.
--- NOTE | 2019-08-06 04:59 | NUR ---
SHIFT SUMMARY HAS RESTED WELL THIS SHIFT. SPOUSE STATES THAT HER WHEEZING HAS GOTTEN WORSE, PT STATES THAT IT GOES AWAY WHEN SHE COUGHES. PT ASLED TO COUGH, AND WHEEZING CLEARED. CONFUSION NOTED, BED ALARM IN PLACE. DENIES PAIN, DISCOMFORT, OR FURTHER NEEDS AT THIS TIME. SAFETY MEASURES IN PLACE. WILL GIVE HAND OFF TO ONCOMING SHIFT USING SBAR DURING BEDSIDE REPORT.
[2019-08-06 05:11] LABS: Albumin, Blood 2.3 g/dL (3.4-5.0); Albumin/Globulin Ratio 0.7 (0.8-1.8); Bilirubin, Total 0.5 mg/dL (0.1-1.0); Bun/Creatinine Ratio 23.9 (12.0-20.0); Calcium, Blood 8.9 mg/dL (8.5-10.1); Creatinine, Blood 1.55 mg/dL (0.40-1.00); Globulin, Blood 3.5 g/dL (2.2-4.0); Potassium, Blood 3.4 mmol/L (3.5-5.5); Total Protein, Blood 5.8 g/dL (6.4-8.2)
--- NOTE | 2019-08-06 06:44 | NUR ---
CONTACTED DR. BUTLER ABOUT BGL OF 68 PER AM LABS.
--- NOTE | 2019-08-06 20:57 | NUR ---
SHIFT SUMMARY PT SLEEPING AT START OF SHIFT THIS AM. WAKES EASILY FOR CARE. PT'S CBG'S HAVE BEEN LOW, SEE CHART. SNACKS PROVIDED AND SS INSULIN HELD. CBG'S STILL REMAINED LOW THIS EVENING. DISCUSSED ORDER FOR LANTUS WITH DR GALLEGOS. VERBAL ORDER TO HOLD FOR TONIGHT AND HE WILL REASSESS TOMORROW. PT HAS REMAINED INCONTINENT OF URINE ALL DAY AGAIN. PT DID HAVE BM TONIGHT. ATTEMPTED TO USE BEDPAN LAST NIGHT, BUT UNSUCCESSFUL. PT HAS WANTED TO SLEEP ALOT TODAY. RT PLACED PT ON HER BIPAP; ATTEMPTED BIPAP W/O O2, BUT PT REMAINS ON 2L O2. LUNGS T/O WITH CRACKLES AND EXP WHEEZES TODAY. PT ALSO COUGHING SOME TODAY. BP ELEVATED THIS AM WELL, SEE CHART. PT MEDICATED PER EMAR. BP DECREASED AND MEDS ADJUSTED BY DR GALLEGOS. AT BS A COUPLE OF TIMES, GOING HOME FOR THE NIGHT. BED BATH GIVEN TODAY AND LINENS CHANGED. PT NEEDING TO BECOME MORE MOBILE AGAIN. WILL NOT BE ABLE TO CARE FOR HER BEING THIS WEAK. PT ISN'T MOTIVATED TO GET BETTER EITHER. JUST WANTS TO SLEEP. NO C/O PAIN. CALL LT IN REACH. ABLE TO USE.
[2019-08-07 04:47] LABS: BASOPHILS ABSOLUTE AUTO 0.03 K/mm3 (0.00-0.23); BASOPHILS PERCENT AUTO 0 % (0-2); EOSINOPHILS ABSOLUTE AUTO 0.16 K/mm3 (0.00-0.68); EOSINOPHILS PERCENT AUTO 2 % (0-6); Hematocrit 34.2 % (33.0-51.0); Hemoglobin 11.6 g/dL (11.5-16.0); IMMATURE GRAN ABSOLUTE AUTO 0.09 K/mm3 (0.00-0.10); IMMATURE GRAN PERCENT AUTO 1 % (0-1); LYMPHOCYTES ABSOLUTE AUTO 2.63 K/mm3 (0.84-5.20); LYMPHOCYTES PERCENT AUTO 30 % (21-46); MONOCYTES ABSOLUTE AUTO 0.95 K/mm3 (0.16-1.47); MONOCYTES PERCENT AUTO 11 % (4-13); Mean Corpuscular HGB Conc 33.9 g/dL (31.5-36.5); Mean Corpuscular Volume 91 fL (80-100); Mean Platelet Volume 11.2 fL (9.1-12.4); NEUTROPHILS ABSOLUTE AUTO 4.93 K/mm3 (1.96-9.15); NEUTROPHILS PERCENT AUTO 56 % (41-73); Platelet Count 162 K/mm3 (150-400); RDW Coefficient Variation 13.9 % (11.7-14.2); RDW Standard Deviation 47.1 fL (35.1-46.3); Red Blood Cell Count 3.74 M/mm3 (3.80-5.20); White Blood Cell Count 8.79 K/mm3 (4.00-11.30)
[2019-08-07 05:06] LABS: Albumin, Blood 1.9 g/dL (3.4-5.0); Albumin/Globulin Ratio 0.6 (0.8-1.8); Bilirubin, Total 0.4 mg/dL (0.1-1.0); Calcium, Blood 8.2 mg/dL (8.5-10.1); Creatinine, Blood 1.48 mg/dL (0.40-1.00); Globulin, Blood 3.2 g/dL (2.2-4.0); Potassium, Blood 3.3 mmol/L (3.5-5.5); Total Protein, Blood 5.1 g/dL (6.4-8.2)
--- NOTE | 2019-08-07 07:44 | NUR ---
SHIFT SUMMARY AOX4. VSS. DENIES PAIN, N/V, OR DYSPNEA @REST. ON BIPAP T/O NIGHT, INCREASED O2 BLEED IN TO 3.5L BECAUSE SPO2 @87% ON 2L. E/U RESPIRATIONS, CRACKLES HEARD IN THE BASES OF LUNGS, HAS NONPRODUCTIVE COUGH @THIS TIME. EDEMA T/O BODY W/+2 PITTING EDEMA IN BLE. HELD LANTUS LAST NIGHT & THIS AM PER VERBAL INSTRUCTIONS YESTERDAYS NURSE RECIEVED SINCE PTS CBG HAS BEEN RUNNING LOW. CBG @HS WAS 96 & THIS AM CBG WAS 91, NO COVERAGE PROVIDED. PT INCONTINENT OF URINE & CHANGED PRN. CALL LIGHT IN REACH.
[2019-08-07] MEDS ORDERED: ACET325 PO (09:21)
[2019-08-07] MEDS ORDERED: BISA10S PR (09:22)
[2019-08-07] MEDS ORDERED: CEFPODOXIME PR100 MG PO (09:23)
[2019-08-07] MEDS ORDERED: DOCU100 PO (09:24)
[2019-08-07] MEDS ORDERED: DEXAMETHASONE LEFTEAR (09:24)
[2019-08-07] MEDS ORDERED: Pedi-Dri 100,0060 GM TOP (09:25)
[2019-08-07] MEDS ORDERED: ONDA4ODT MM (09:25)
--- NOTE | 2019-08-07 13:51 | NUR ---
REVIEW D'C W/PT AND S.O. REVIEW ECHO PER PATIENT REQUEST. AWARE TO KEEP APPT W/. AWARE TO KEEP TAKING PROBIOTIC WHILE ON ANTIBIOTIC. PER OK TO HAVE VANTIN POST STOOL TRANSPLANT [address] AWARE TO [address] MANAGER RX AT [facility]. ABSWER ALL QUESTIONS. IN OWN W/C TO POV.
== END 2019-08-07 14:01 | disposition home health service (06) | DRG 291 ==
LOC: ER 08:07 → MEDS 10:14 → ENPENDDIS 08-07 09:32 → MEDS 08-07 14:01
PROVIDERS: Emergency Medicine; Family Medicine; ADMIT Internal Medicine
DX: I13.0 Hypertensive heart and chronic kidney disease with heart failure and stage 1 through stage 4 chronic kidney disease, or unspecified chronic kidney disease (principal); J96.21 Acute and chronic respiratory failure with hypoxia; I50.33 Acute on chronic diastolic (congestive) heart failure; J21.0 Acute bronchiolitis due to respiratory syncytial virus; C85.90 Non-Hodgkin lymphoma, unspecified, unspecified site; N18.3 Chronic kidney disease, stage 3 (moderate); E11.22 Type 2 diabetes mellitus with diabetic chronic kidney disease; H66.42 Suppurative otitis media, unspecified, left ear; E03.9 Hypothyroidism, unspecified; E66.01 Morbid (severe) obesity due to excess calories; E11.319 Type 2 diabetes mellitus with unspecified diabetic retinopathy without macular edema; E11.42 Type 2 diabetes mellitus with diabetic polyneuropathy; F32.9 Major depressive disorder, single episode, unspecified; D63.1 Anemia in chronic kidney disease; E78.5 Hyperlipidemia, unspecified; G47.33 Obstructive sleep apnea (adult) (pediatric); K21.9 Gastro-esophageal reflux disease without esophagitis; M35.3 Polymyalgia rheumatica; Z79.4 Long term (current) use of insulin; Z51.5 Encounter for palliative care; Z85.850 Personal history of malignant neoplasm of thyroid; Z66 Do not resuscitate
CPT/HCPCS: 0099U; 36415; 36600; 71045; 80053; 82803; 82947; 83605; 83880; 84484; 85025; 93005; 93010; 93306; 94640; 94644; 94761; 94762; 96374; 96375; 97110; 97162; 97166; 97530; 99285-25; A9270-GY; J0360; J0696; J1644; J1940; J2930; J7050

== ENCOUNTER 2020-08-30 22:22 | Inpatient (IN) | payer MEDICARE, BC, OTHER ==
[~2020-08-30] VITALS: Ht 162.6 cm; Wt 120.8 kg
[~2020-08-30 22:22] MED LIST changes: +Acidophilus1 EAC1 PO; +Amoxicillin500 MG PO; +Aspir 8181 MG PO; +BENZ100A PO; +BIOTIN5 MG PO; +BUPROPION HCL150 MG PO; +Bumetanide2 MG PO; +CALC.25 PO; +CEFPODOXIME PR100 MG PO; +CIPDEXSU LEFTEAR; +Catapres0.2 MG PO; +DEXAMETHASONE LEFTEAR; +EDARBI40 MG PO; +FAMO20 PO; +FUROSEMIDE40 MG PO; +GABA100 PO; +HUMALOG100 UNIT/1 SC; +HYDR10 PO; +LEVSOD100 PO; +MECL12.5 PO; +MELA3 PO; +METO100ER PO; +Pedi-Dri 100,0060 GM TOP; +THERA-D2000 UNIT PO; +THERA1 EACH PO; +TOUJEO SOL300 UNIT/2 SC; +Vitamin B-Comp1 EACH PO
[2020-08-30 23:23] LABS: BASOPHILS ABSOLUTE AUTO 0.05 K/mm3 (0.00-0.23); BASOPHILS PERCENT AUTO 0 % (0-2); EOSINOPHILS PERCENT AUTO 1 % (0-6); Hematocrit 39.1 % (33.0-51.0); Hemoglobin 12.9 g/dL (11.5-16.0); IMMATURE GRAN ABSOLUTE AUTO 0.13 K/mm3 (0.00-0.10); IMMATURE GRAN PERCENT AUTO 1 % (0-1); LYMPHOCYTES ABSOLUTE AUTO 3.77 K/mm3 (0.84-5.20); LYMPHOCYTES PERCENT AUTO 24 % (21-46); MONOCYTES PERCENT AUTO 9 % (4-13); Mean Corpuscular HGB 28.9 pg (26.0-34.0); Mean Corpuscular Volume 88 fL (80-100); Mean Platelet Volume 11.8 fL (9.1-12.4); NEUTROPHILS ABSOLUTE AUTO 10.18 K/mm3 (1.96-9.15); NEUTROPHILS PERCENT AUTO 65 % (41-73); Platelet Count 236 K/mm3 (150-400); RDW Coefficient Variation 15.3 % (11.7-14.2); RDW Standard Deviation 49.1 fL (35.1-46.3); Red Blood Cell Count 4.46 M/mm3 (3.80-5.20); White Blood Cell Count 15.73 K/mm3 (4.00-11.30)
[2020-08-30] MEDS ORDERED: CALC.25 PO (23:25)
[2020-08-30] MEDS ORDERED: METO5 PO (23:28)
[2020-08-31 00:30] LABS: Alanine Aminotransfer (ALT/SGP 19 U/L (12-78); Albumin, Blood 2.2 g/dL (3.4-5.0); Albumin/Globulin Ratio 0.6 (0.8-1.8); Alk Phos 98 U/L (50-136); Anion Gap 5 mmol/L (6-16); Aspartate Aminotrans (AST/SGOT 24 U/L (12-37); Bilirubin, Total 0.5 mg/dL (0.1-1.0); Blood Urea Nitrogen 36 mg/dL (8-24); Bun/Creatinine Ratio 15.5 (12.0-20.0); CO2, Blood 28 mmol/L (21-32); Calcium, Blood 8.6 mg/dL (8.5-10.1); Chloride, Blood 106 mmol/L (98-108); Creatinine, Blood 2.32 mg/dL (0.40-1.00); Globulin, Blood 3.5 g/dL (2.2-4.0); Glomerular Filtration Rate 22 (60-); Glucose, Blood 79 mg/dL (70-99); Magnesium, Blood 1.8 mg/dL (1.6-2.4); Phosphorus, Blood 3.4 mg/dL (2.5-4.9); Potassium, Blood 4.2 mmol/L (3.5-5.5); Sodium, Blood 139 mmol/L (136-145); Total Protein, Blood 5.7 g/dL (6.4-8.2); Troponin I <0.015 ng/mL (0.000-0.040)
[2020-08-31 00:40] LABS: Source, Urine Clean Catch
[2020-08-31 00:52] LABS: Bilirubin, Urine Neg (Neg); Blood, Urine 1+ (Neg); Glucose Qualitative, Urine Neg (Neg); Ketones, Urine 1+ (Neg); Leukocyte Esterase, Urine 1+ (Neg); Nitrite, Urine Neg (Neg); Protein, Urine 4+ (Neg); Specific Gravity, Urine 1.015 (1.003-1.022); Urobilinogen, Urine NORM (Normal)
[2020-08-31 00:57] LABS: Appearance, Urine Hazy (Clear); Color, Urine Yellow (P-Yellow)
[2020-08-31 00:58] LABS: Bacteria Many /hpf; Red Blood Cells, Urine Rare /hpf (0-2); Squamous Epithelial Cells Not Seen /hpf (Few); White Blood Cells, Urine 25-50 /hpf (0-5)
[2020-08-31 01:57] LABS: Influenza A, PCR NEGATIVE (NEGATIVE); Influenza B, PCR NEGATIVE (NEGATIVE); Resp Syncytial Virus, PCR NEGATIVE (NEGATIVE); SARS-Cov-2 (COVID-19) PCR, MMC NEGATIVE (NEGATIVE)
--- NOTE | 2020-08-31 04:53 | NUR ---
FEEDER/FOLDER SUMMARY PT ADMITTED TO UNIT FROM ED APPROX 0250, RECEIVED REPORT FROM HARINI FARRIS. PT ACCOMPANIED BY UPON ADMISSION. PT A&OX4, ABLE TO MAKE NEEDS KNOWN. PLEASANT AND COOPERATIVE TO CARE. PT CONT ON 2LPM O2 VIA NC. NO C/O PAIN OR ANY DISCOMFORT, DENIES CP / N&V / DYSURIA. PT NOTED TO HAVE SOB W/ EXERTION. PT ABLE TO USE BEDPAN, DENIES DYSURIA. PT CALM AND RESTING IN BED W/ CPAP ON AT THIS TIME. BED AT LOWEST POSITION. CALL LIGHT WITHIN REACH.
[2020-08-31 09:22] LABS: BASOPHILS ABSOLUTE AUTO 0.04 K/mm3 (0.00-0.23); BASOPHILS PERCENT AUTO 0 % (0-2); EOSINOPHILS ABSOLUTE AUTO 0.06 K/mm3 (0.00-0.68); EOSINOPHILS PERCENT AUTO 0 % (0-6); Hematocrit 40.4 % (33.0-51.0); Hemoglobin 13.3 g/dL (11.5-16.0); IMMATURE GRAN ABSOLUTE AUTO 0.12 K/mm3 (0.00-0.10); IMMATURE GRAN PERCENT AUTO 1 % (0-1); LYMPHOCYTES ABSOLUTE AUTO 2.98 K/mm3 (0.84-5.20); LYMPHOCYTES PERCENT AUTO 19 % (21-46); MONOCYTES ABSOLUTE AUTO 1.19 K/mm3 (0.16-1.47); MONOCYTES PERCENT AUTO 8 % (4-13); Mean Corpuscular HGB 28.7 pg (26.0-34.0); Mean Corpuscular HGB Conc 32.9 g/dL (31.5-36.5); Mean Corpuscular Volume 87 fL (80-100); Mean Platelet Volume 11.8 fL (9.1-12.4); NEUTROPHILS ABSOLUTE AUTO 11.02 K/mm3 (1.96-9.15); NEUTROPHILS PERCENT AUTO 72 % (41-73); Platelet Count 193 K/mm3 (150-400); RDW Coefficient Variation 15.4 % (11.7-14.2); RDW Standard Deviation 48.6 fL (35.1-46.3); Red Blood Cell Count 4.64 M/mm3 (3.80-5.20); White Blood Cell Count 15.41 K/mm3 (4.00-11.30)
[2020-08-31 09:37] LABS: Albumin, Blood 2.2 g/dL (3.4-5.0); Albumin/Globulin Ratio 0.6 (0.8-1.8); Bilirubin, Total 0.6 mg/dL (0.1-1.0); Bun/Creatinine Ratio 16.6 (12.0-20.0); Calcium, Blood 8.7 mg/dL (8.5-10.1); Creatinine, Blood 2.23 mg/dL (0.40-1.00); Globulin, Blood 3.9 g/dL (2.2-4.0); Potassium, Blood 4.4 mmol/L (3.5-5.5); Total Protein, Blood 6.1 g/dL (6.4-8.2)
[2020-08-31 09:46] LABS: Albumin, Blood 2.3 g/dL (3.4-5.0); Anion Gap 7 mmol/L (6-16); Blood Urea Nitrogen 37 mg/dL (8-24); Bun/Creatinine Ratio 16.4 (12.0-20.0); CO2, Blood 27 mmol/L (21-32); Calcium, Blood 8.9 mg/dL (8.5-10.1); Chloride, Blood 103 mmol/L (98-108); Creatinine, Blood 2.26 mg/dL (0.40-1.00); Glomerular Filtration Rate 22 (60-); Glucose, Blood 220 mg/dL (70-99); Magnesium, Blood 1.8 mg/dL (1.6-2.4); Phosphorus, Blood 3.5 mg/dL (2.5-4.9); Potassium, Blood 4.4 mmol/L (3.5-5.5); Sodium, Blood 137 mmol/L (136-145)
--- NOTE | 2020-08-31 19:22 | NUR ---
SHIFT SUMMARY: PT ON CONTINUOUS OXIMETRY FOR CPAP USE; HAD EPISODE OF BRADYCARDIA TO HIGH 40'S WHILE SLEEPING TODAY, AWAKENED NORMALLY AND HR CORRECTED. ALSO PLACED ON O2 @ 3 L/MIN NC IN ORDER TO KEEP SATS > 90%, TITRATED DOWN TO 2 L/MIN THIS EVENING. CHANGED DIET TO CARDIAC/ADA PER HER REQUEST. VOIDING USING BEDPAN. DENIED PAIN. SPOUSE VISITED THIS EVENING.
--- NOTE | 2020-09-01 04:33 | NUR ---
SLAB TRIPPER SUMMARY NO ACUTE CHANGES NOTED TO PT OVERNIGHT. PT A&OX4, ABLE TO MAKE NEEDS KNOWN. PLEASANT AND COOPERATIVE TO CARE. NO C/O PAIN OR ANY DISCOMFORT, NO C/O CP, SOB, OR N&V. PT ON CPAP AT NIGHT, SATS >92%. PT CALM AND RESTED IN BED T/O SHIFT. PT USES BED DONOVAN, DENIES DYSURIA. BED AT LOWEST POSITION. CALL LIGHT WITHIN REACH.
[2020-09-01 05:14] LABS: BASOPHILS ABSOLUTE AUTO 0.03 K/mm3 (0.00-0.23); BASOPHILS PERCENT AUTO 0 % (0-2); EOSINOPHILS ABSOLUTE AUTO 0.12 K/mm3 (0.00-0.68); EOSINOPHILS PERCENT AUTO 1 % (0-6); Hemoglobin 11.4 g/dL (11.5-16.0); IMMATURE GRAN ABSOLUTE AUTO 0.09 K/mm3 (0.00-0.10); IMMATURE GRAN PERCENT AUTO 1 % (0-1); LYMPHOCYTES ABSOLUTE AUTO 2.84 K/mm3 (0.84-5.20); LYMPHOCYTES PERCENT AUTO 25 % (21-46); MONOCYTES ABSOLUTE AUTO 1.09 K/mm3 (0.16-1.47); MONOCYTES PERCENT AUTO 10 % (4-13); Mean Corpuscular HGB 28.6 pg (26.0-34.0); Mean Corpuscular HGB Conc 33.5 g/dL (31.5-36.5); Mean Corpuscular Volume 85 fL (80-100); Mean Platelet Volume 12.1 fL (9.1-12.4); NEUTROPHILS ABSOLUTE AUTO 7.29 K/mm3 (1.96-9.15); NEUTROPHILS PERCENT AUTO 64 % (41-73); Platelet Count 156 K/mm3 (150-400); RDW Coefficient Variation 14.9 % (11.7-14.2); RDW Standard Deviation 46.9 fL (35.1-46.3); Red Blood Cell Count 3.98 M/mm3 (3.80-5.20); White Blood Cell Count 11.46 K/mm3 (4.00-11.30)
[2020-09-01 05:36] LABS: Albumin, Blood 1.9 g/dL (3.4-5.0); Anion Gap 9 mmol/L (6-16); Blood Urea Nitrogen 41 mg/dL (8-24); Bun/Creatinine Ratio 17.8 (12.0-20.0); CO2, Blood 29 mmol/L (21-32); Calcium, Blood 8.6 mg/dL (8.5-10.1); Chloride, Blood 100 mmol/L (98-108); Glomerular Filtration Rate 22 (60-); Glucose, Blood 219 mg/dL (70-99); Magnesium, Blood 1.8 mg/dL (1.6-2.4); Phosphorus, Blood 4.1 mg/dL (2.5-4.9); Potassium, Blood 3.6 mmol/L (3.5-5.5); Sodium, Blood 138 mmol/L (136-145)
--- NOTE | 2020-09-01 06:43 | NUR ---
RECEIVED CALL FROM PCU COMMODITY SUPERVISOR APPROX 0600, PT RUNNING 20 BEAT VTACH THEN IMMEDIATELY CONVERTED TO SINUR RHYTHM. NOTIFIED HOSPITALIST DR. SCHNEIDER. TTierra. NOTED.
--- NOTE | 2020-09-01 18:37 | NUR ---
SHIFT SUMMARY: NO FURTHER EVENTS ON TELEMETRY, DENIED CP. OXYGEN TITRATED DOWN TO 1 L/MIN NC WITH O2 SAT 91-93%. BRADYCARDIC IN THE 50'S, SO METOPROLOL HAD TO BE HELD THIS MORNING. GOOD APPETITE, CBG 230-299 TODAY. GOOD URINE OUTPUT, HAD BM TODAY. THIS AUTHOR PLACED ORDER FOR FLUID RESTRICTION BASED ON DR. MALDONADO'S NOTE, HAD NOT BEEN ON IT PREVIOUSLY. GOAL FOR WEDNESDAY IS TO GET OOB TO CHAIR.
--- NOTE | 2020-09-02 03:32 | NUR ---
PRIMARY HEALTH ORGANISATION MANAGER SUMMARY NO ACUTE CHANGES NOTED TO PT THIS SHIFT. A&OX4, ABLE TO MAKE NEEDS KNOWN. PLEASANT AND COOPERATIVE TO CARE. NO C/O PAIN OR ANY DISCOMFORT THIS SHIFT. NO C/O CP, SOB, OR N&V. USES CPAP DURING SLEEP. PT ON CONT BIOX, SATS >92%. PT CALM AND RESTED IN BED T/O SHIFT. USES BEDPAN, DENIES DYSURIA. BED AT LOWEST POSITION. CALL LIGHT WITHIN REACH.
[2020-09-02 05:08] LABS: BASOPHILS ABSOLUTE AUTO 0.03 K/mm3 (0.00-0.23); BASOPHILS PERCENT AUTO 0 % (0-2); EOSINOPHILS ABSOLUTE AUTO 0.21 K/mm3 (0.00-0.68); EOSINOPHILS PERCENT AUTO 3 % (0-6); Hematocrit 33.1 % (33.0-51.0); Hemoglobin 11.1 g/dL (11.5-16.0); IMMATURE GRAN ABSOLUTE AUTO 0.07 K/mm3 (0.00-0.10); IMMATURE GRAN PERCENT AUTO 1 % (0-1); LYMPHOCYTES ABSOLUTE AUTO 2.53 K/mm3 (0.84-5.20); LYMPHOCYTES PERCENT AUTO 31 % (21-46); MONOCYTES ABSOLUTE AUTO 0.79 K/mm3 (0.16-1.47); MONOCYTES PERCENT AUTO 10 % (4-13); Mean Corpuscular HGB 28.8 pg (26.0-34.0); Mean Corpuscular HGB Conc 33.5 g/dL (31.5-36.5); Mean Corpuscular Volume 86 fL (80-100); Mean Platelet Volume 11.9 fL (9.1-12.4); NEUTROPHILS ABSOLUTE AUTO 4.66 K/mm3 (1.96-9.15); NEUTROPHILS PERCENT AUTO 56 % (41-73); Platelet Count 158 K/mm3 (150-400); RDW Standard Deviation 46.8 fL (35.1-46.3); Red Blood Cell Count 3.85 M/mm3 (3.80-5.20); White Blood Cell Count 8.29 K/mm3 (4.00-11.30)
[2020-09-02 05:35] LABS: Albumin, Blood 1.7 g/dL (3.4-5.0); Anion Gap 5 mmol/L (6-16); Blood Urea Nitrogen 45 mg/dL (8-24); Bun/Creatinine Ratio 20.6 (12.0-20.0); CO2, Blood 35 mmol/L (21-32); Calcium, Blood 8.8 mg/dL (8.5-10.1); Chloride, Blood 98 mmol/L (98-108); Creatinine, Blood 2.18 mg/dL (0.40-1.00); Glomerular Filtration Rate 23 (60-); Glucose, Blood 224 mg/dL (70-99); Phosphorus, Blood 3.9 mg/dL (2.5-4.9); Potassium, Blood 3.2 mmol/L (3.5-5.5); Sodium, Blood 138 mmol/L (136-145)
--- NOTE | 2020-09-02 19:42 | NUR ---
ASSUMPTION OF CARE. AOX3, COOPERTIVE. DENIES ANY N/T, CP, NAUSEA. STATES DIZZINESS UPON STANDING BUT IT SUBSIDES QUICKLY. BT ACTIVE. REGULAR BM, GOOD APPETITE. ON FLUID RESTRICTION. LUNG SOUNDS ARE VERY DIMINISHED AND TIGHT IN BASES, SOB WITH EXERTION. OCCATIONAL COUGH, NON-PRODUCTIVE. TRACE EDEMA. NO PAIN. CONTINUOUS BIOX SHOWS 94-95% ON 1.5 LITERS. DENIES ANY NEEDS AT THIS TIME. CALL LIGHT IS WITH IN REACH.
--- NOTE | 2020-09-03 04:49 | NUR ---
SHIFT SUMMARY: AOX3, UP WITH ASSIST TO THE BATHROOM. LUNG SOUNDS DIMINISHED, MILD SOB WITH EXERTION. ON 1.5 LITERS, SATS WERE IN MID 90'S. TURNED OFF O2, SATS REMAINED 92% WHILE SLEEPING SO FAR ON CONTINUOUS PULSE OX. EDEMA IN BLE IS IMPROVING. FLUID RESTRICTION HELD. INTAKE 360 SO FAR THIS SHIFT AND 1550 OUTPUT. BP RUNNING IN 150'S, DID DROP TO 110'S AROUND MIDNIGHT, HYDRALIZE HELD PER PARAMETERS. BS 302. TELE- SINUS WITH SINUS RADHA LOW 40'S. SLEPT WELL. NO OTHER ACUTE CHANGES TO NOTE, CALL LIGHT USED APPROPRIATLY, REMAINS WITH IN REACH.
[2020-09-03 05:57] LABS: Albumin, Blood 1.9 g/dL (3.4-5.0); Anion Gap 4 mmol/L (6-16); Blood Urea Nitrogen 49 mg/dL (8-24); Bun/Creatinine Ratio 20.7 (12.0-20.0); CO2, Blood 36 mmol/L (21-32); Calcium, Blood 9.2 mg/dL (8.5-10.1); Chloride, Blood 95 mmol/L (98-108); Creatinine, Blood 2.37 mg/dL (0.40-1.00); Glomerular Filtration Rate 21 (60-); Glucose, Blood 238 mg/dL (70-99); Magnesium, Blood 1.8 mg/dL (1.6-2.4); Phosphorus, Blood 4.2 mg/dL (2.5-4.9); Potassium, Blood 3.7 mmol/L (3.5-5.5); Sodium, Blood 135 mmol/L (136-145)
[2020-09-03] MEDS ORDERED: NYSTATIN15 GM TOP (12:13)
--- NOTE | 2020-09-03 13:26 | NUR ---
PT DISCHARGED THE PT AND HER VERBALIZED UNDERSTANDING OF THE DC INSTRUCTIONS, THE PTS PRESCRIPTIONS WERE FAXED TO [facility] TORRES, THE PT DECLINED HER LUNCH AND INSULIN COVERAGE, TOBI REED NURSE STORE LEADER SPOKE WITH THE PT AND HER REGARDING CONCERNS WITH THE PTS STAY BEFORE DC, THE PT WAS A/OX3 AT THE TIME OF DC, PT WAS TRANSFERED VIA WHEELCHAIR, A POST HOSPITAL REVIEW APPOINTMENT WAS MADE FOR THE PT
== END 2020-09-03 13:15 | disposition home health service (06) | DRG 291 ==
LOC: ER 22:22 → MEDS 08-31 01:24
PROVIDERS: Emergency Medicine; Internal Medicine; ADMIT Internal Medicine
DX: I13.0 Hypertensive heart and chronic kidney disease with heart failure and stage 1 through stage 4 chronic kidney disease, or unspecified chronic kidney disease (principal); I50.33 Acute on chronic diastolic (congestive) heart failure; J96.01 Acute respiratory failure with hypoxia; C85.90 Non-Hodgkin lymphoma, unspecified, unspecified site; N17.9 Acute kidney failure, unspecified; Z68.42 Body mass index [BMI] 45.0-49.9, adult; E11.319 Type 2 diabetes mellitus with unspecified diabetic retinopathy without macular edema; Z20.822 Contact with and (suspected) exposure to COVID-19; I16.0 Hypertensive urgency; E03.9 Hypothyroidism, unspecified; E11.40 Type 2 diabetes mellitus with diabetic neuropathy, unspecified; E78.5 Hyperlipidemia, unspecified; E11.22 Type 2 diabetes mellitus with diabetic chronic kidney disease; F32.9 Major depressive disorder, single episode, unspecified; R82.71 Bacteriuria; G47.33 Obstructive sleep apnea (adult) (pediatric); E66.9 Obesity, unspecified; N18.30 Chronic kidney disease, stage 3 unspecified; Z87.891 Personal history of nicotine dependence; Z86.718 Personal history of other venous thrombosis and embolism; Z90.49 Acquired absence of other specified parts of digestive tract; Z90.89 Acquired absence of other organs; Z98.49 Cataract extraction status, unspecified eye; Z90.710 Acquired absence of both cervix and uterus; Z98.890 Other specified postprocedural states; Z88.5 Allergy status to narcotic agent; Z88.6 Allergy status to analgesic agent; Z88.8 Allergy status to other drugs, medicaments and biological substances; Z79.4 Long term (current) use of insulin; Z79.82 Long term (current) use of aspirin; Z79.899 Other long term (current) drug therapy
CPT/HCPCS: 0241U; 36415; 51701; 71045; 80053; 80069; 81001; 82947; 83605; 83735; 83880; 84100; 84443; 84484; 85025; 87040; 87077; 87086; 87186; 93005; 93010; 94660; 94762; 96374; 97116; 97162; 97165; 97530; 97535; 99285-25; A9270; J0360; J0696; J1650; J1940

== ENCOUNTER 2020-11-05 11:45 | Inpatient (IN) | payer MEDICARE, BC, OTHER ==
[~2020-11-05] VITALS: Ht 162.6 cm; Wt 119.5 kg
[~2020-11-05 11:45] MED LIST changes: +METO5 PO; +NYSTATIN15 GM TOP
[2020-11-05 12:05] LABS: Base Excess Venous -5.6 mmol/L; Bicarbonate Venous 19.9 mmol/L (24.0-30.0); PCO2 Venous 42.1 mmHg (38-42); PO2 Venous 71.9 mmHg (38-42)
[2020-11-05 12:12] LABS: BASOPHILS ABSOLUTE AUTO 0.04 K/mm3 (0.00-0.23); BASOPHILS PERCENT AUTO 0 % (0-2); EOSINOPHILS ABSOLUTE AUTO 0.04 K/mm3 (0.00-0.68); EOSINOPHILS PERCENT AUTO 0 % (0-6); Hematocrit 37.4 % (33.0-51.0); Hemoglobin 12.2 g/dL (11.5-16.0); IMMATURE GRAN ABSOLUTE AUTO 0.11 K/mm3 (0.00-0.10); IMMATURE GRAN PERCENT AUTO 1 % (0-1); LYMPHOCYTES ABSOLUTE AUTO 3.59 K/mm3 (0.84-5.20); LYMPHOCYTES PERCENT AUTO 21 % (21-46); MONOCYTES PERCENT AUTO 8 % (4-13); Mean Corpuscular HGB 30.7 pg (26.0-34.0); Mean Corpuscular HGB Conc 32.6 g/dL (31.5-36.5); Mean Corpuscular Volume 94 fL (80-100); Mean Platelet Volume 11.6 fL (9.1-12.4); NEUTROPHILS ABSOLUTE AUTO 11.57 K/mm3 (1.96-9.15); NEUTROPHILS PERCENT AUTO 69 % (41-73); Platelet Count 269 K/mm3 (150-400); RDW Coefficient Variation 14.7 % (11.7-14.2); Red Blood Cell Count 3.98 M/mm3 (3.80-5.20); White Blood Cell Count 16.75 K/mm3 (4.00-11.30)
[2020-11-05 12:44] LABS: Albumin, Blood 2.6 g/dL (3.4-5.0); Albumin/Globulin Ratio 0.7 (0.8-1.8); Bilirubin, Total 0.8 mg/dL (0.1-1.0); Bun/Creatinine Ratio 20.9 (12.0-20.0); Calcium, Blood 8.3 mg/dL (8.5-10.1); Creatinine, Blood 3.02 mg/dL (0.40-1.00); Globulin, Blood 3.7 g/dL (2.2-4.0); Magnesium, Blood 2.1 mg/dL (1.6-2.4); Potassium, Blood 5.6 mmol/L (3.5-5.5); Total Protein, Blood 6.3 g/dL (6.4-8.2)
[2020-11-05 12:51] LABS: Troponin I 1.04 ng/mL (0.000-0.040)
[2020-11-05] MEDS ORDERED: SYNTHROID175 MC1 PO (13:39)
[2020-11-05] MEDS ORDERED: AMLODIPINE BESYL5 MG PO (13:40)
[2020-11-05] MEDS ORDERED: BUPR150ER PO (13:41)
--- NOTE | 2020-11-05 16:31 | NUR ---
Echocardiogram performed.
--- NOTE | 2020-11-05 19:00 | NUR ---
ASSUMED CARE ASSUMED CARE OF PATIENT. AWAKE AND ALERT. RESTING QUIETLY WITH BIPAP ON AT THIS TIME. BIPAP /6, BUR 12, FIO2 45%. PT DENIES SOB OR DYSPNEA AT THIS TIME. MONITOR SHOWS SB WITH BBB, RATE 50s. BP STABLE WITH NIPRIDE CURRENTLY AT 2MG/HR. DENIES C/O PAIN OR NAUSEA. SEE SHIFT ASSESSMENT FOR FULL ASSESSMENT.
[2020-11-05 20:13] LABS: Source, Urine Clean Catch
[2020-11-05 20:19] LABS: Bilirubin, Urine Neg (Neg); Blood, Urine 1+ (Neg); Glucose Qualitative, Urine 2+ (Neg); Ketones, Urine Neg (Neg); Leukocyte Esterase, Urine 2+ (Neg); Nitrite, Urine Pos (Neg); Protein, Urine 4+ (Neg); Urobilinogen, Urine NORM (Normal)
[2020-11-05 20:24] LABS: Appearance, Urine Hazy (Clear); Color, Urine Pale Yellow (P-Yellow)
[2020-11-05 20:26] LABS: Bacteria Many /hpf; Red Blood Cells, Urine 0-2 /hpf (0-2); Squamous Epithelial Cells Mod /hpf (Few)
--- NOTE | 2020-11-05 21:22 | NUR ---
LEFT HAND IV LEFT HAND IV IS NOT FULLY INSERTED INTO VEIN, BUT HAS BLOOD RETURN AND IS PATENT WITH FLUSHING.
--- NOTE | 2020-11-06 00:46 | NUR ---
LEFT HAND IV LEFT HAND IV CHECKED- GOOD BLOOD RETURN AND IS PATENT.
[2020-11-06 04:36] LABS: BASOPHILS ABSOLUTE AUTO 0.03 K/mm3 (0.00-0.23); BASOPHILS PERCENT AUTO 0 % (0-2); EOSINOPHILS ABSOLUTE AUTO 0.03 K/mm3 (0.00-0.68); EOSINOPHILS PERCENT AUTO 0 % (0-6); Hematocrit 33.3 % (33.0-51.0); Hemoglobin 10.6 g/dL (11.5-16.0); IMMATURE GRAN ABSOLUTE AUTO 0.08 K/mm3 (0.00-0.10); IMMATURE GRAN PERCENT AUTO 1 % (0-1); LYMPHOCYTES ABSOLUTE AUTO 2.47 K/mm3 (0.84-5.20); LYMPHOCYTES PERCENT AUTO 18 % (21-46); MONOCYTES ABSOLUTE AUTO 1.41 K/mm3 (0.16-1.47); MONOCYTES PERCENT AUTO 10 % (4-13); Mean Corpuscular HGB 30.1 pg (26.0-34.0); Mean Corpuscular HGB Conc 31.8 g/dL (31.5-36.5); Mean Corpuscular Volume 95 fL (80-100); Mean Platelet Volume 11.3 fL (9.1-12.4); NEUTROPHILS ABSOLUTE AUTO 9.82 K/mm3 (1.96-9.15); NEUTROPHILS PERCENT AUTO 71 % (41-73); Platelet Count 191 K/mm3 (150-400); RDW Coefficient Variation 14.3 % (11.7-14.2); RDW Standard Deviation 49.4 fL (35.1-46.3); Red Blood Cell Count 3.52 M/mm3 (3.80-5.20); White Blood Cell Count 13.84 K/mm3 (4.00-11.30)
[2020-11-06 05:10] LABS: Albumin, Blood 2.2 g/dL (3.4-5.0); Albumin/Globulin Ratio 0.6 (0.8-1.8); Bilirubin, Total 0.8 mg/dL (0.1-1.0); Bun/Creatinine Ratio 22.4 (12.0-20.0); Calcium, Blood 8.4 mg/dL (8.5-10.1); Creatinine, Blood 2.94 mg/dL (0.40-1.00); Globulin, Blood 3.6 g/dL (2.2-4.0); Potassium, Blood 4.9 mmol/L (3.5-5.5); Total Protein, Blood 5.8 g/dL (6.4-8.2)
--- NOTE | 2020-11-06 06:07 | NUR ---
SHIFT SUMMARY NO ACUTE CHANGES DURING NOC. PT SLEPT MOST OF NOC, WAKING UP EASILY TO STIMULI. REMAINED ON BIPAP 12/6, BUR 12, FIO2 45% MOSTLY, BUT CHANGED OVER TO 6L NC FOR BREAKS. RESPIRATIONS EVEN AND UNLABORED. OCCASIONALLY TACHYPNEIC, BUT PT DENIES DYSPNEA/SOB. NIPRIDE INFUSED BETWEEN 2-3MG/HR TO MAINTAIN SBP <150. NOW INFUSING AT 3MG/HR. MONITOR SHOWS SB WITH BBB, RATE 50s-60. AFEBRILE. VOIDING USING BEDPAN. SMALL SIPS OF WATER TOLERATED. PT DENIES C/O PAIN OR OTHER DISCOMFORT. WILL REPORT TO ONCOMING RN WHEN AVAILABLE.
--- NOTE | 2020-11-06 06:07 | NUR ---
LEFT HAND IV LEFT HAND IV REMAINS PATENT AND HAS GOOD BLOOD RETURN.
[2020-11-06 08:55] LABS: Thyroid Stimulating Hormone 11.3 uIU/mL (0.360-4.800); Uric Acid, Blood 9.2 mg/dL (2.6-6.0)
[2020-11-06 10:14] LABS: Bilirubin, Urine Neg (Neg); Blood, Urine 1+ (Neg); Glucose Qualitative, Urine 2+ (Neg); Ketones, Urine Neg (Neg); Leukocyte Esterase, Urine 3+ (Neg); Nitrite, Urine Neg (Neg); Protein, Urine 4+ (Neg); Specific Gravity, Urine 1.015 (1.003-1.022); Urobilinogen, Urine NORM (Normal)
[2020-11-06 10:15] LABS: Appearance, Urine Hazy (Clear); Color, Urine Yellow (P-Yellow); White Blood Cells, Urine TNTC /hpf (0-5)
[2020-11-06 10:16] LABS: Bacteria Many /hpf; Squamous Epithelial Cells Few /hpf (Few)
--- NOTE | 2020-11-06 10:53 | NUR ---
CARE ASSUMED OF PT AT 0700. PT SLEEPING, AROUSES TO VOICE. VERY DROWSY, FALLS ASLEEP DURING CARE.PT C/O HALLUCINATIONS, RE-ORIENTS WELL, ABLE TO HAVE AN APPROPRIATE CONVERSATION. SATS >95% ON 6L VIA N/C, RESP EVEN UNLABORED. DENIES SOB, CRACKLES TO LLL. PT ON NICARDIPINE GTT 3MG/HR AT 0700. SEVERAL PO HTN MEDS GIVEN, NIPRIDE GTT NOW OFF. PT UNABLE TO USE BEDPAD W/O URINE SIGNIFICANTLY SPILLING OVER. 24HR URINE ORDERED; DR LU NOTIFIED, 16F SCOTT CATH PLACED W/O DIFFICULTY. 24HR URINE STARTED AT 0915. POWERGLIDE PLACED TO LUIS BOTH PERIPHERAL IV'S WERE NOT PATENT THIS AM. DR TORRES IN THIS AM; GIVEN FULL UPDATE. DIET ORDERED.
--- NOTE | 2020-11-06 12:55 | NUR ---
BP HAS BEEN STABLE (SBP~140'S) OFF OF NICARDIPINE GTT. PT AWAKE EATING LUNCH W/O COMPLAINTS.
--- NOTE | 2020-11-06 15:47 | NUR ---
PT DID NOT HAVE ANY NEEDLES FOR HER TOUJEO THAT WAS BROUGHT IN, AND THIS PEN IS NOT COMPATIBLE WITH OUR NEEDLES. BLOOD SUGARS HAVE BEEN 275-[address] TORRES CALLED AND UPDATED. SEMGLEE ORDERED W NOW DOSE GIVEN. 5UNITS HUMALOG W EACH MEAL, IN ADDITION TO SS ORDERED. PT NOW MED FLOOR STATUS W TELE. PT'S DAUGHTER AT BEDSIDE AND GIVEN UPDATE. PT STILL HAVING HALLUCINATIONS, BUT IS CALM, AND COOPERATIVE. PT RE-ORIENTED EASILY AND ABLE TO HAVE APPROPRIATE CONVERSATION. SBP 140-160'S. TAKING PO MEDS WELL, TOLERATED LUNCH.
--- NOTE | 2020-11-06 19:30 | NUR ---
PT TRANSFERRED FROM ICU #4 AT 1715- BED TO BED TX WITH 4 PERSON SLIDE. PT IS ALERT TO PERSON, PLACE, DATE AND TIME. PRESIDENT AND CIRCUMSTANCES. PT ORIENTED TO THE ROOM. CALL LIGHT AND SAFETY. SCOTT PATENT AND DRAINING ON ICE FOR 24HR UUN. LUNGS WITH CRACKLES IN THE L BASE. SATS 97% ON 4L NC. BREATHING EVEN UNLABORED. PT IS PLEASANT AND COOPERATIVE.
--- NOTE | 2020-11-06 19:32 | NUR ---
SUMM- PT TOLERATED DINNER. ELEVATED BLOOD SUGAR COVERED WITH REG INSULIN. PT GIVEN 3MG OF BUMEX FOR PM DOSE. DIURESING LG AMOUNTS OF CLEAR YELLOW. LUNGS CLEAR, BREATHING EASY ON 4L. FINE CX IN L BASE. PT HAS CALL LIGHT CLOSE. SLEEPY BUT AROUSES. REPORTED TO AVNI SCHULER.
--- NOTE | 2020-11-07 04:48 | NUR ---
SHIFT SUMMARY: VSS. AFEB. 02 SATS WNL ON 4L VIA NC. AAOX3. SLEEPING MOST OF THE NIGHT BUT AROUSES EASILY. DENIES PAIN. REMAINS IN BED. F/C PATENT AND DRAINING CLEAR YELLOW URINE. 24 HOUR URINE COLLECTION IN PROGRESS. LSCTA W/ DIM BASES. NO COUGHING. RESPS REG, NON-LAOBRED. NO ACUTE OVERNIGHT EVENTS. WCTM.
[2020-11-07 05:20] LABS: Hematocrit 31.8 % (33.0-51.0); Hemoglobin 10.4 g/dL (11.5-16.0)
[2020-11-07 05:49] LABS: Anion Gap 6 mmol/L (6-16); Blood Urea Nitrogen 71 mg/dL (8-24); Bun/Creatinine Ratio 23.3 (12.0-20.0); CO2, Blood 24 mmol/L (21-32); Calcium, Blood 8.2 mg/dL (8.5-10.1); Chloride, Blood 106 mmol/L (98-108); Creatinine, Blood 3.05 mg/dL (0.40-1.00); Glomerular Filtration Rate 16 (60-); Glucose, Blood 188 mg/dL (70-99); Phosphorus, Blood 4.8 mg/dL (2.5-4.9); Potassium, Blood 4.1 mmol/L (3.5-5.5); Sodium, Blood 136 mmol/L (136-145)
[2020-11-07 10:19] LABS: Protein, Urine Quantitative 116.3 mg/dL (0.0-11.9)
--- NOTE | 2020-11-07 10:33 | NUR ---
PT BLOOD PRESSURE AND HEART RATE/AM MEDS THIS RN NOTED PT BP OF 181/61 WITH HR OF 55. THIS RN SPOKE WITH DR. TORRES AT APPROXIMATELY 0820 DURING ROUNDS ABOUT HR AND AM MEDICATIONS. THIS RN RECIEVED ORDERS TO HOLD PT'S METOPROLOL. THIS RN ALSO RECIEVED ORDERS TO CONTINUE WITH THE ADMINISTRATION OF PT'S HYDRALAZINE, CATAPRES, AND AMLODIPINE MEDICATION. THIS RN WILL CONTINUE TO MONITOR PT'S STATUS.
--- NOTE | 2020-11-07 18:30 | NUR ---
SHIFT SUMMARY PT IS AOX4 AND PLEASANT. PT DENIES PAIN, N/V, SOB. PT O2 TITRATED TO 3 L THIS ZARA. PT AMBULATES WITH ONE PERSON ASSIST AND FWW PER BASELINE TO [facility]. TELE IS RUNNING BRADYCARDIA WITH INCIDENCE OF HR 48-50 THIS ZARA. PT APPETITE IS GOOD. NO PROCEDURES DONE THIS SHIFT. PT'S VISITED THIS ZARA. PLAN IS TO TITRATE O2 WHILE WORKING ON AMBULATION AND BP. PT IS IN BED, CALL LIGHT IN REACH, BED IN LOW POSITION.
[2020-11-08 05:02] LABS: Hematocrit 31.8 % (33.0-51.0); Hemoglobin 10.4 g/dL (11.5-16.0)
[2020-11-08 05:20] LABS: Albumin, Blood 1.8 g/dL (3.4-5.0); Anion Gap 7 mmol/L (6-16); Blood Urea Nitrogen 73 mg/dL (8-24); Bun/Creatinine Ratio 25.7 (12.0-20.0); CO2, Blood 25 mmol/L (21-32); Calcium, Blood 8.3 mg/dL (8.5-10.1); Chloride, Blood 104 mmol/L (98-108); Creatinine, Blood 2.84 mg/dL (0.40-1.00); Glomerular Filtration Rate 17 (60-); Glucose, Blood 189 mg/dL (70-99); Phosphorus, Blood 5.3 mg/dL (2.5-4.9); Potassium, Blood 4.1 mmol/L (3.5-5.5); Sodium, Blood 136 mmol/L (136-145)
--- NOTE | 2020-11-08 05:53 | NUR ---
SHIFT SUMMARY: HTN W/SBP RANGING FROM 175 TO 190 TONIGHT. SINUS RADHA 56, 1ST DEGREE HB AND BBB. DENIES MANNING OR CP. 02 SAT 97% ON 2L THIS AM. DENIES SOB. LSCTA W/ DIM BASES. NO COUGHING. AAOX3. COMMUNICATES NEEDS APPROPRIATELY USING CALL BUTTON. UP W/ 1 ASSIST AND FWW TO BSC. CONTINENT. SLEPT WELL. WCTM.
--- NOTE | 2020-11-08 18:24 | NUR ---
SHIFT SUMMARY NO ACUTE CHANGES, A&Ox4, CALM AND COOPERATIVE. PT DOWN TO 1 L/MIN VIA NC, WAS ON 2 /MIN BEGINNING OF SHIFT. PT WAS SATING ABOVE 90% ON RA BUT REPORTED SHE FELT LIKE SHE WAS WORKING TO BREATH, STATES SHE FEELS BETTER WITH THE 1 L/MIN ON. DENIES ANY PAIN OR DISTRESS. BP STILL ELEVATED, MEDICATIONS ADJUSTED. CONTINUED TO MONITOR, BP IMPROVED SLIGHLTY. [place] [facility] PT IS CURRENTLY LYING IN BED, CALL LIGHT WITHIN REACH. CALLS APPROPRIATELY.
--- NOTE | 2020-11-09 04:02 | NUR ---
SHIFT SUMMARY ADMITTED FOR ACUTE RESPIRATORY FAILURE WITH HYPOXEMIA. FULL CODE. PLAN FOR DC HOME WITH HOME HEALTH. PT HAD SOME COMPLAINTS OF SOB WHEN GETTING UP TO COMMODE; RESOLVED WHEN PT GOT BACK INTO BED. NO OTHER CONCERNS AT THIS TIME.
--- NOTE | 2020-11-09 04:17 | NUR ---
CTA/SECURITY ASSURANCE SPECIALIST I HAVE ASSESSED THIS PT. I HAVE READ THE SECURITY ASSURANCE SPECIALIST'S DOCUMENTATION AND I AGREE. SHIFT SUMMARY IN SECURITY ASSURANCE SPECIALIST NOTES.
[2020-11-09 05:02] LABS: Hematocrit 35.9 % (33.0-51.0); Hemoglobin 11.8 g/dL (11.5-16.0)
[2020-11-09 05:22] LABS: Albumin, Blood 2.1 g/dL (3.4-5.0); Anion Gap 7 mmol/L (6-16); Blood Urea Nitrogen 71 mg/dL (8-24); Bun/Creatinine Ratio 27.7 (12.0-20.0); CO2, Blood 25 mmol/L (21-32); Calcium, Blood 8.8 mg/dL (8.5-10.1); Chloride, Blood 104 mmol/L (98-108); Creatinine, Blood 2.56 mg/dL (0.40-1.00); Glomerular Filtration Rate 19 (60-); Glucose, Blood 134 mg/dL (70-99); Phosphorus, Blood 4.7 mg/dL (2.5-4.9); Potassium, Blood 3.7 mmol/L (3.5-5.5); Sodium, Blood 136 mmol/L (136-145)
[2020-11-09] MEDS ORDERED: CEPH250A PO (11:03)
[2020-11-09] MEDS ORDERED: CLOP75 PO (11:03)
--- NOTE | 2020-11-09 12:55 | NUR ---
Initial palliative care consult: Paulette is a 75 year old lady with a history of chronic diastolic heart failure, DM type 2, UTIs, neuropathy, non-Hodgkin lymphonma, hypothroidism, CKD, sleep apnea. She was admitted on 11/05/20 with increasing dyspnea and pulmonary edema. Paulette lives with Andrew, who is a retired RN, and their two dogs in their home in [place]. She has discharge orders to be able to go home today. She is looking forward to going home as they have extended family coming into town for a high school graduation. She reports she is going to meet a great grandson from [place] and see her other great grandson from [place] this weekend at their family reunion for the graduation. She denies any symptoms at rest. She states that she has worked with RT and passed her home O2 test so that she will not need O2 at home. She denies CP, dizziness, weakness or cough. She states she did not get very SOB when walking with RT during the home O2 eval. She reports that she has enough help at home with her as he helps manage the rn prior authorization. Dr. Cruz has been managing her primary care needs. He took over after her MD . She reports that she doesn't have an AD or POLST and has not talked to Dr. Cruz about this subject. Her reports that she was a DNR previously but during this admission she requested a full code. Paulette states that she has "great grandchildren to live for." She is willing to take a POLST form and AD packet home with her to discuss further with her and MD. Visit shortened as patient is anxious to get her discharge instructions and to go home.
--- NOTE | 2020-11-09 13:32 | NUR ---
DISCHARGED HOME WITH PRESENT. ALL QUESTIONS ANSWERED. TEACHBACK METHOD UTILIZED. VERBALIZED UNDERSTANDING OF THE DISCHARGE INSTRUCTIONS. ALL PERSONAL BELONGINGS IN PATIENT POSSESSION AT TIME OF DISCHARGE.
[2020-11-13 21:06] LABS: METANEPHRINE, UR 21 ug/L (Undefined)
[2020-11-15 00:10] LABS: ALDOS/RENIN RATIO <3.5 (0.0-30.0); ALDOSTERONE <1.0 ng/dL (0.0-30.0)
[2020-11-19 03:11] LABS: CREATININE, URINE 27.6 mg/dL (Not Estab.)
== END 2020-11-09 13:20 | disposition home or self-care (01) | DRG 291 ==
LOC: ER 11:45 → ICUE 13:13 → ICUW 13:13 → ICUE 15:04 → MEDS 11-06 16:35
PROVIDERS: Emergency Medicine; Internal Medicine Nephrology; ADMIT Internal Medicine
PROC: 5A09357 Assistance with Respiratory Ventilation, Less than 24 Consecutive Hours, Continuous Positive Airway Pressure (ICD-10-PCS; principal; 2020-11-05)
DX: I13.0 Hypertensive heart and chronic kidney disease with heart failure and stage 1 through stage 4 chronic kidney disease, or unspecified chronic kidney disease (principal); J96.01 Acute respiratory failure with hypoxia; J96.02 Acute respiratory failure with hypercapnia; I50.33 Acute on chronic diastolic (congestive) heart failure; C85.10 Unspecified B-cell lymphoma, unspecified site; N17.9 Acute kidney failure, unspecified; N25.81 Secondary hyperparathyroidism of renal origin; E87.1 Hypo-osmolality and hyponatremia; N39.0 Urinary tract infection, site not specified; E11.40 Type 2 diabetes mellitus with diabetic neuropathy, unspecified; E11.319 Type 2 diabetes mellitus with unspecified diabetic retinopathy without macular edema; I16.0 Hypertensive urgency; E66.01 Morbid (severe) obesity due to excess calories; E11.65 Type 2 diabetes mellitus with hyperglycemia; N18.30 Chronic kidney disease, stage 3 unspecified; G47.33 Obstructive sleep apnea (adult) (pediatric); E78.5 Hyperlipidemia, unspecified; E03.9 Hypothyroidism, unspecified; D63.1 Anemia in chronic kidney disease; E11.22 Type 2 diabetes mellitus with diabetic chronic kidney disease; Z86.718 Personal history of other venous thrombosis and embolism; Z90.49 Acquired absence of other specified parts of digestive tract; Z98.49 Cataract extraction status, unspecified eye; Z90.89 Acquired absence of other organs; Z90.710 Acquired absence of both cervix and uterus; Z87.891 Personal history of nicotine dependence; Z98.890 Other specified postprocedural states; Z88.5 Allergy status to narcotic agent; Z88.6 Allergy status to analgesic agent; Z88.8 Allergy status to other drugs, medicaments and biological substances; Z79.4 Long term (current) use of insulin; Z79.899 Other long term (current) drug therapy
CPT/HCPCS: 36415; 71045; 76770; 80053; 80069; 81001; 81050; 82088; 82530; 82570; 82803; 82947; 83735; 83835; 83880; 84156; 84244; 84443; 84484; 84550; 84585; 85014; 85018; 85025; 85730; 87077; 87086; 87147; 87186; 93005; 93010; 93306; 93975; 94660; 94761; 96374; 99285-25; A9270; C1751; J1940; J7050

== ENCOUNTER 2021-01-30 00:04 | Observation (INO) | payer MEDICARE, BC, OTHER ==
[~2021-01-30] VITALS: Ht 152.4 cm; Wt 113.4 kg
[~2021-01-30 00:04] MED LIST changes: +AMLODIPINE BESYL5 MG PO; +CEPH250A PO; +CLOP75 PO; +SYNTHROID175 MC1 PO
[2021-01-30 00:36] LABS: BASOPHILS ABSOLUTE AUTO 0.02 K/mm3 (0.00-0.23); BASOPHILS PERCENT AUTO 0 % (0-2); EOSINOPHILS ABSOLUTE AUTO 0.15 K/mm3 (0.00-0.68); EOSINOPHILS PERCENT AUTO 2 % (0-6); Hematocrit 34.9 % (33.0-51.0); Hemoglobin 11.6 g/dL (11.5-16.0); IMMATURE GRAN ABSOLUTE AUTO 0.04 K/mm3 (0.00-0.10); IMMATURE GRAN PERCENT AUTO 1 % (0-1); LYMPHOCYTES ABSOLUTE AUTO 2.69 K/mm3 (0.84-5.20); LYMPHOCYTES PERCENT AUTO 34 % (21-46); MONOCYTES ABSOLUTE AUTO 0.84 K/mm3 (0.16-1.47); MONOCYTES PERCENT AUTO 11 % (4-13); Mean Corpuscular HGB Conc 33.2 g/dL (31.5-36.5); Mean Corpuscular Volume 90 fL (80-100); Mean Platelet Volume 11.5 fL (9.1-12.4); NEUTROPHILS ABSOLUTE AUTO 4.25 K/mm3 (1.96-9.15); NEUTROPHILS PERCENT AUTO 53 % (41-73); Platelet Count 229 K/mm3 (150-400); RDW Coefficient Variation 14.8 % (11.7-14.2); RDW Standard Deviation 48.5 fL (35.1-46.3); Red Blood Cell Count 3.87 M/mm3 (3.80-5.20); White Blood Cell Count 7.99 K/mm3 (4.00-11.30)
[2021-01-30 00:58] LABS: Albumin, Blood 2.8 g/dL (3.4-5.0); Albumin/Globulin Ratio 0.7 (0.8-1.8); Bilirubin, Total 0.6 mg/dL (0.1-1.0); Bun/Creatinine Ratio 19.6 (12.0-20.0); Calcium, Blood 9.4 mg/dL (8.5-10.1); Creatinine, Blood 2.65 mg/dL (0.40-1.00); Globulin, Blood 3.8 g/dL (2.2-4.0); Potassium, Blood 4.2 mmol/L (3.5-5.5); Total Protein, Blood 6.6 g/dL (6.4-8.2)
[2021-01-30 01:41] LABS: International Normalized Ratio 1.01; Prothrombin Time Results 10.9 Sec (9.7-11.5)
[2021-01-30 02:08] LABS: SARS-Cov-2 (COVID-19) PCR, MMC NEGATIVE (NEGATIVE)
[2021-01-30 02:35] LABS: CHOL/HDL RATIO 6.7; Cholesterol 222 mg/dL (50-200); HDL Cholesterol 33 mg/dL (>39); LDL/HDL RATIO 4.4; Low Density Lipoprotein Chol 145 mg/dL (0-110); Triglycerides 222 mg/dL (30-160); Very Low Density Lipoprot Chol 44 mg/dL (6-32)
[2021-01-30] MEDS ORDERED: METO100ER PO (12:03)
[2021-01-30] MEDS ORDERED: Potassium Chlo20 ME1 PO (12:04)
[2021-01-30] MEDS ORDERED: Synthroid/Levo0.2 MG PO (12:08)
--- NOTE | 2021-01-30 16:11 | NUR ---
SHIFT SUMMARY PT CAME IN FOR ACUTE CVA; LEFT SIDED DROOP AND SLURRED SPEECH; EYES UNEQUAL AND GAZE TO THE RIGHT SIDE. PT HAS HIGH BP; MEDICATED PER EMAR WITH PARAMETERS ALLOWING HIGH BP AT THIS TIME. PT HAS CHRONIC GENERALIZED PAIN; PT HAD PT/OT/ST. PT IS ON PUREE DIET AND NEEDS ASSISTANCE TO EAT. PT HAS EDEMA +1 BLE. PT IS ON TELE NS WITH BB AND FD WITH A RATE OF 60S. PT HAS AN EXTENSIVE PMH SUCH CHF, CKD, UTI, NEUROPATHY, NONHODGKINS, ANGIE, CKD, USES CPAP AT HOME, PULM HTN, AND BLOOD CLOT IN LEG. 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 PT STATED SHE USES FWW AT HOME; BUT NOW FEEL WEAK. BED IS IN THE LOWEST POSITION AND CALL LIGHT WITHIN REACH
--- NOTE | 2021-01-30 16:19 | NUR ---
VERIFIED DNR BAND WITH CESAR SCHULER; DNR BAND ON PT LEFT ARM
--- NOTE | 2021-01-30 18:30 | NUR ---
SHIFT SUMMARY PT AOX4; FACIAL DROOP ON LEFT AND EYE UNEQUAL. PT STATED HER RIGHT EYE HAS POOR VISION AND HAVING A HARD TIME TO OPEN THE LEFT EYE. PT ABLE TO TURN AND SKIN INTACT. DENIES ANY PAIN AT THIS TIME. BED IS IN THE LOWEST POSITION AND CALL LIGHT WITHIN REACH
--- NOTE | 2021-01-31 06:17 | NUR ---
SHIFT SUMMARY PT ALERT THIS EVENING. MOSTLY ORIENTED WITH SOME INTERMITTENT CONFUSION. L SIDED FACIAL DROOP AND SLIGHT SLURRED SPEECH. PUPILS UNEQUAL AND R EYE UNREACTIVE. ABSORBER OPERATOR EQUAL AND STRONG. PT DOES HAVE GENERALIZED WEAKNESS. PT WAS ABLE TO STAND AND TRANSFER TO [facility] WITH FWW AND 2 PERSON ASSIST. CONTINENT THIS EVENING. TELEMETRY READING SR 1ST DEG HB AND BBB AT 73. PT DENIED ANY PAIN OR NAUSEA. HTN THIS EVENING. HS NORVASC GIVEN WITH IMPROVEMENT THIS AM. OTHERWISE VITAL SIGNS STABLE. BED ALARM ON FOR SAFETY THROUGHOUT THE NIGHT. WILL CONTINUE TO MONITOR.
--- NOTE | 2021-01-31 11:56 | NUR ---
DISCHARGE NOTE PT IS AOX4 AND PLEASANT. PT IV REMOVED PER DOCUMENTATION. PT ASSISTED INTO HOME CLOTHING BY THIS RN AND FAMILY. THIS RN REVIEWED DC INSTRUCTIONS WITH AND PT WHO VERBALIZED UNDERSTANDING. PT ASSISTED INTO WHEELCHAIR BY THIS RN AND . BELONGINGS PRESENT AT DC. PT WHEELED OFF UNIT TO PRIVATE VEHICLE WITH FAMILY FOR DC.
--- NOTE | 2021-02-03 16:05 | NUR ---
PT ADVOCATE/PT DISCHARGE THIS RN RECEIVED CALL THAT PT'S WOULD LIKE TO SPEAK TO THE NURSE ABOUT DC PAPERWORK, STATING, " SAYS THEY DID NOT RECEIVE PAPERWORK." THIS RN CALLED WHO QUOTED THE DC PAPERWORK TO THIS RN AND HAD QUESTIONS REGARDING THE ORDERS. PT WANTED TO KNOW WHY ACTIVITY AND DIET SECTION WERE BLANK AND THIS RN STATED THOSE SECTIONS ARE AUTOFILLED IF THE PHYSICIAN ORDERS DIET OR ACTIVITY CHANGES ON DC. THIS RN HAD REVIEWED THIS PAPERWORK WITH PT AND UPON PT'S DC. THIS RN ACCESSED PT'S CHART TO REVIEW THE DC PAPEROWRK AGAIN WITH PT'S . PT'S STATED HE UNDERSTOOD THE DC INSTRUCTIONS, BUT WANTED MORE DONE FOR HIS . THIS RN STATED THE PT ADVOCATE IS WORKING ON HIS CASE. THIS RN ASKED AGAIN IF PT'S HAD ANY MORE QUESTIONS ABOUT DC PAPERWORK, BUT WANTED TO DISCUSS CT SCANS, PT ORDERS, AND FURTHER ORDERS THAT A PHYSICIAN WOULD HAVE TO PRESCRIBE. THIS RN REDIRECTED PT'S TO THE DR. LU FOLLOW-UP APPOINTMENT ORDERED ON THE DC PAPERWORK. PT'S STATED HE DID NOT HAVE ANYMORE QUESTIONS REGARDING THE DC PAPERWORK.
== END 2021-01-31 11:55 | disposition home health service (06) ==
LOC: ER 00:04 → MEDS 00:05 → ERHOLD 00:05 → MEDS 13:15 → ENPENDDIS 01-31 09:28 → MEDS 01-31 11:55
PROVIDERS: Emergency Medicine; ADMIT Family Medicine
DX: I63.81 Other cerebral infarction due to occlusion or stenosis of small artery (principal); R29.810 Facial weakness; R47.81 Slurred speech; G81.94 Hemiplegia, unspecified affecting left nondominant side; H50.9 Unspecified strabismus; I13.0 Hypertensive heart and chronic kidney disease with heart failure and stage 1 through stage 4 chronic kidney disease, or unspecified chronic kidney disease; E11.22 Type 2 diabetes mellitus with diabetic chronic kidney disease; N18.4 Chronic kidney disease, stage 4 (severe); I50.32 Chronic diastolic (congestive) heart failure; E11.40 Type 2 diabetes mellitus with diabetic neuropathy, unspecified; Z79.4 Long term (current) use of insulin; E78.5 Hyperlipidemia, unspecified; E89.0 Postprocedural hypothyroidism; G47.33 Obstructive sleep apnea (adult) (pediatric); D32.9 Benign neoplasm of meninges, unspecified; E66.01 Morbid (severe) obesity due to excess calories; Z68.42 Body mass index [BMI] 45.0-49.9, adult; Z88.6 Allergy status to analgesic agent; Z88.5 Allergy status to narcotic agent; Z88.8 Allergy status to other drugs, medicaments and biological substances; Z91.018 Allergy to other foods; Z85.72 Personal history of non-Hodgkin lymphomas; Z66 Do not resuscitate; Z79.82 Long term (current) use of aspirin; Z20.822 Contact with and (suspected) exposure to COVID-19
CPT/HCPCS: 36415; 70450; 70496; 70498; 70551; 71045; 80053; 80061; 82947; 83880; 85025; 85610; 92610; 93005; 93010; 96372; 96372-59; 96374; 97162; 97530; 99285-25; A9270; G0378; J0360; J1650; J1815; Q9967; U0004

== ENCOUNTER 2021-05-10 10:29 | Emergency (ER) | payer MEDICARE, BC, OTHER ==
[~2021-05-10] VITALS: Ht 162.6 cm; Wt 108.9 kg
[~2021-05-10 10:29] MED LIST changes: +Potassium Chlo20 ME1 PO; +Synthroid/Levo0.2 MG PO
== END 2021-05-10 13:17 | disposition home or self-care (01) ==
LOC: ER 10:29
DX: M25.552 Pain in left hip (principal); E03.9 Hypothyroidism, unspecified; I50.30 Unspecified diastolic (congestive) heart failure; E11.22 Type 2 diabetes mellitus with diabetic chronic kidney disease; N18.4 Chronic kidney disease, stage 4 (severe); E11.40 Type 2 diabetes mellitus with diabetic neuropathy, unspecified; E78.00 Pure hypercholesterolemia, unspecified; Z88.5 Allergy status to narcotic agent; Z88.8 Allergy status to other drugs, medicaments and biological substances; Z79.82 Long term (current) use of aspirin; Z79.4 Long term (current) use of insulin; Z79.899 Other long term (current) drug therapy; W18.30XA Fall on same level, unspecified, initial encounter
CPT/HCPCS: 36415; 70450; 73522; 93005; 93010; 99284-25

== ENCOUNTER 2021-06-25 10:17 | Inpatient (IN) | payer MEDICARE, BC, OTHER ==
[~2021-06-25] VITALS: Ht 167.6 cm; Wt 145.2 kg
[2021-06-25 10:59] LABS: Source, Urine Clean Catch
[2021-06-25 11:06] LABS: BASOPHILS ABSOLUTE AUTO 0.04 K/mm3 (0.00-0.23); BASOPHILS PERCENT AUTO 0 % (0-2); EOSINOPHILS ABSOLUTE AUTO 0.04 K/mm3 (0.00-0.68); EOSINOPHILS PERCENT AUTO 0 % (0-6); Hematocrit 37.2 % (33.0-51.0); Hemoglobin 11.7 g/dL (11.5-16.0); IMMATURE GRAN ABSOLUTE AUTO 0.19 K/mm3 (0.00-0.10); IMMATURE GRAN PERCENT AUTO 2 % (0-1); LYMPHOCYTES ABSOLUTE AUTO 2.49 K/mm3 (0.84-5.20); LYMPHOCYTES PERCENT AUTO 21 % (21-46); MONOCYTES ABSOLUTE AUTO 0.63 K/mm3 (0.16-1.47); MONOCYTES PERCENT AUTO 5 % (4-13); Mean Corpuscular HGB 27.1 pg (26.0-34.0); Mean Corpuscular HGB Conc 31.5 g/dL (31.5-36.5); Mean Corpuscular Volume 86 fL (80-100); Mean Platelet Volume 11.1 fL (9.1-12.4); NEUTROPHILS PERCENT AUTO 71 % (41-73); Platelet Count 156 K/mm3 (150-400); RDW Coefficient Variation 15.3 % (11.7-14.2); RDW Standard Deviation 48.9 fL (35.1-46.3); Red Blood Cell Count 4.31 M/mm3 (3.80-5.20); White Blood Cell Count 11.69 K/mm3 (4.00-11.30)
[2021-06-25 11:14] LABS: Appearance, Urine Hazy (Clear); Bilirubin, Urine Neg (Neg); Blood, Urine 1+ (Neg); Color, Urine Yellow (P-Yellow); Glucose Qualitative, Urine Neg (Neg); Ketones, Urine Neg (Neg); Leukocyte Esterase, Urine Neg (Neg); Nitrite, Urine Neg (Neg); Protein, Urine 3+ (Neg); Urobilinogen, Urine NORM (Normal)
[2021-06-25 11:25] LABS: Albumin, Blood 2.1 g/dL (3.4-5.0); Albumin/Globulin Ratio 0.7 (0.8-1.8); Bilirubin, Total 0.6 mg/dL (0.1-1.0); Bun/Creatinine Ratio 20.3 (12.0-20.0); Calcium, Blood 7.9 mg/dL (8.5-10.1); Creatinine, Blood 4.24 mg/dL (0.40-1.00); Globulin, Blood 2.9 g/dL (2.2-4.0); Potassium, Blood 3.6 mmol/L (3.5-5.5); Troponin I 0.184 ng/mL (0.000-0.040)
[2021-06-25 11:30] LABS: Bacteria Mod /hpf; Red Blood Cells, Urine 0-2 /hpf (0-2); Squamous Epithelial Cells Few /hpf (Few)
[2021-06-25 11:31] LABS: Amorphous Mod (0-Heavy)
[2021-06-25 11:58] LABS: Influenza A, PCR NEGATIVE (NEGATIVE); Influenza B, PCR NEGATIVE (NEGATIVE); Resp Syncytial Virus, PCR NEGATIVE (NEGATIVE)
[2021-06-25 11:59] LABS: SARS-Cov-2 (COVID-19) PCR, MMC POSITIVE (NEGATIVE)
[2021-06-25 17:14] LABS: Bicarbonate Venous 15.1 mmol/L (24.0-30.0); PCO2 Venous 33.3 mmHg (38-42); PO2 Venous 98.4 mmHg (38-42); pH Blood Venous 7.24 (7.34-7.37)
--- NOTE | 2021-06-25 18:39 | NUR ---
Arrival to unit Received report from HARINI Sargent-ER. Patient arrived via gurney with at bedside approx 181. states he will be bringing belongings home. On 2.5L NC. Does not respond to verbal stimuli. Max assist with bed mobility. Valencia inserted in ER, patent and draining. Patient settled to room. DNR band verified with CELESTE Joaquin-RN and placed on patient's wrist. Multiple wounds and small blisters to BLE, large blister to anterior R foot that is intact. Mild redness coccyx, scattered ecchymosis. Call light near, bed in lowest position. Will hand off report to oncoming shift.
[2021-06-25] MEDS ORDERED: TORSE20 PO (18:47)
[2021-06-25] MEDS ORDERED: ATOR40TA PO (18:48)
--- NOTE | 2021-06-26 06:08 | NUR ---
SHIFT SUMMARY. PT WAS ADMITTED FOR INCREASE WEAKNESS ,COUGH AND SOB. DNR CODE STATUS. PER ,PT IS BLIND.PT IS VERY LETHARGIC, AROUSED BY MODERATE STIMULI BUT THEN DRIFTS BACK TO SLEEP. PT ON 2L NC. VSS REVIEWED. SCOTT CATHETER IN PLACE IN PLACE. PRESSURE ULCERS WERE NOTED AND PICTURES WERE TAKEN. BED IN LOWER POSITION AND CALL LIGHT IN PLACE. WILL CONTINUE TO MONITOR UNTIL DAY SHIFT GETS REPORTS.
--- NOTE | 2021-06-26 19:21 | NUR ---
SHIFT SUMMARY PATIENT SLEPT ALL OF THE DAY ONLY WAKING TO PHYSICAL STIMULI. ONCE WOKEN SHE WOULD ANSWER TO SIMPLE YES OR NO QUESTIONS. PATIENT NPO. COVID + WITH LOOSE COUGH PRESENT ON 2LNC. MULTIPLE PRESSURE SORES NOTED ON BLE AND BRUISING ON BUE. PRESSURE SOR ON SACRUM. SCOTT CATHETER PRESENT WITH VERY LITTLE OUTPUT T/O SHIFT. CAME TO VISIT PATIENT TODAY. WILL CONTINUE TO MONITOR.
--- NOTE | 2021-06-27 05:04 | NUR ---
SHIFT SUMMARY PT REMAINS LETHARGIC ,AROUSABLE TO PHYSICAL STIMUALTION THEN DRIFTS BACK TO SLEEP.PT REMAINS ON 2L NC. ORAL MED WAS HELD DUE TO RISQ OF ASPIRATION. PT WAS CHANGED AND REPOSITIONNED NEEDED. SCOTT IS PATENT AND DRAINING SMALL AMOUNT OFURINE.BED INLOWER POSITION AND CALL LIGHT IN REACH.WILL CONTINUE TO MONITOR UNTIL GIVING REPORT TO DAY SHIFT NURSE.
[2021-06-27 05:20] LABS: BASOPHILS ABSOLUTE AUTO 0.02 K/mm3 (0.00-0.23); BASOPHILS PERCENT AUTO 0 % (0-2); EOSINOPHILS PERCENT AUTO 0 % (0-6); Hematocrit 38.2 % (33.0-51.0); Hemoglobin 11.8 g/dL (11.5-16.0); IMMATURE GRAN ABSOLUTE AUTO 0.16 K/mm3 (0.00-0.10); IMMATURE GRAN PERCENT AUTO 2 % (0-1); LYMPHOCYTES PERCENT AUTO 17 % (21-46); MONOCYTES ABSOLUTE AUTO 0.42 K/mm3 (0.16-1.47); MONOCYTES PERCENT AUTO 4 % (4-13); Mean Corpuscular HGB 26.9 pg (26.0-34.0); Mean Corpuscular HGB Conc 30.9 g/dL (31.5-36.5); Mean Corpuscular Volume 87 fL (80-100); Mean Platelet Volume 11.5 fL (9.1-12.4); NEUTROPHILS ABSOLUTE AUTO 8.28 K/mm3 (1.96-9.15); NEUTROPHILS PERCENT AUTO 78 % (41-73); Platelet Count 174 K/mm3 (150-400); RDW Coefficient Variation 15.3 % (11.7-14.2); RDW Standard Deviation 49.1 fL (35.1-46.3); Red Blood Cell Count 4.38 M/mm3 (3.80-5.20); White Blood Cell Count 10.68 K/mm3 (4.00-11.30)
[2021-06-27 06:16] LABS: Albumin, Blood 2.6 g/dL (3.4-5.0); Bilirubin, Total 0.5 mg/dL (0.1-1.0); Bun/Creatinine Ratio 21.2 (12.0-20.0); Calcium, Blood 8.2 mg/dL (8.5-10.1); Creatinine, Blood 4.38 mg/dL (0.40-1.00); Globulin, Blood 2.6 g/dL (2.2-4.0); Potassium, Blood 3.7 mmol/L (3.5-5.5); Thyroid Stimulating Hormone 3.01 uIU/mL (0.360-4.800); Total Protein, Blood 5.2 g/dL (6.4-8.2)
--- NOTE | 2021-06-27 12:46 | NUR ---
DR VO TO SEE. WILL TALK TO DR ARIAS. ORDERS IN FOR PALIATIVE CARE. CALLED TO PALIATIVE CAR.E
--- NOTE | 2021-06-27 14:50 | NUR ---
Case Conference Note Spoke with Dr Walker and discussed case. Family may benefit from discussion regarding goals of care. Spoke with Primary RN Finesse and discussed case. Pt is awake and understands somethings but struggles with details and possible consequences of decisions. Called and left message with Pt's spouse Andrew with request for a return phone call. Plan: Will discuss goals of care with family. Palliative Care will remain available.
--- NOTE | 2021-06-27 15:44 | NUR ---
Case Conference Note Received return phone call from Pt's spouse Andrew. Provided update and reviewed plan of care. Engaged in therapeutic listening as Andrew reports receiving a phone call from Pt this AM. He reports being caught off guard because usually she is only capable of 2-3 word conversations. He reports Pt had a conversation with him for 15 minutes. He reports Pt does want dialysis but questions her understanding. He reports wanting to respect her wishes but know her quality of life will not improve with dialysis. He reports plan for further conversations with Pt and their daughters regarding goals of care. Andrew reports he was initially moving towards hospice. Andrew reports Pt did not care for having to use dial a ride and going to appointments and knows these will increase with dialysis. Continued therapeutic listening and answered questions. Andrew expresses appreciation and reports no other concerns at this time. Palliative Care will remain available.
--- NOTE | 2021-06-27 16:05 | NUR ---
PT PLEASANT TODAY. ABLE TO TELL ME BASICS, BUT NOT SURE WHERE IS. DETAILS DIFFICULT FOR HER. DRS ARE DISCUSSING POSS DIALYSIS ACCESS. PERMACATH. DISCUSSING WITH FAMILY MAY POSSIBLY NOT BE CANDIDATE. DRS WILL FURHTER REVIEW. PALIATIVE CARE CALLED ON BOARD. TURNING PATIENT REGULARLY. BED IN LOW POSITION CALL LITE IN REACH, BED ALARM ON FOR SAFETY
[2021-06-28 04:32] LABS: Hematocrit 36.7 % (33.0-51.0); Hemoglobin 11.4 g/dL (11.5-16.0)
[2021-06-28 05:27] LABS: Albumin, Blood 2.4 g/dL (3.4-5.0); Anion Gap 10 mmol/L (6-16); Blood Urea Nitrogen 96 mg/dL (8-24); Bun/Creatinine Ratio 21.9 (12.0-20.0); CO2, Blood 21 mmol/L (21-32); Calcium, Blood 7.9 mg/dL (8.5-10.1); Chloride, Blood 113 mmol/L (98-108); Creatinine, Blood 4.39 mg/dL (0.40-1.00); Glomerular Filtration Rate 10 (60-); Glucose, Blood 97 mg/dL (70-99); Magnesium, Blood 2.1 mg/dL (1.6-2.4); Phosphorus, Blood 5.4 mg/dL (2.5-4.9); Potassium, Blood 3.4 mmol/L (3.5-5.5); Sodium, Blood 144 mmol/L (136-145)
--- NOTE | 2021-06-28 06:28 | NUR ---
SHIFT SUMMARY ALERT, ABLE TO MAKE NEEDS KNOWN. ANSWERS SIMPLE QUESTIONS. NO C/O PAIN/DISCOMFORT. REPOSITIONED TOLERATED. SCOTT SECURED, PATENT AND DRAINING TO GRAVITY. APPEARED TO REST MUCH OF THE NIGHT. PLACED ON CPAP T/O SHIFT /c 2L O2 BLEED. NEW IV PLACED BY CHARGE @ 0320; GIVEN IV BUMEX AT THAT TIME. SPOKE WITH PHARMACY ABOUT NEXT DOSING TIME. STATED TO GIVE AROUND 0800. PLACED FOOT CRADLE. BED REMAINED IN LOWEST POSITION. CALL LIGHT IN REACH. REPORT TO ONCOMING RN.
--- NOTE | 2021-06-28 17:01 | NUR ---
Received call from Primary HARINI Kilpatrick reporting spouse has arrived and would like to speak with Palliative Care. Escorted Spouse Andrew to Palliative Care office with Andrew having daughter on speaker phone. Engaged in therapeutic listening as Andrew reports thinking that Pt would not want to pursue dialysis as her quality of life is already greatly diminished. Listened as Andrew reports Pt did not care going to physical therapy. Listened as Andrew reports Pt's quality of life and health has significantly diminshed since having her stroke and is not bed bound requiring mechanical lift for transfers. Pt normaly does not respond much verbaly. Andrew reports pursuing hospice would be Pt's wishes at this point in her life. Educated on comfort care and hospice philosophy with V/U made by Andrew and daughter. Daughter is in agreement with decision to pursue comfort care and hospice. Continued therapeutic listening and answered questions. No other concerns reported at this time. Spoke with Primary HARINI Kilpatrick and discussed case. Spoke with Dr Walker and discussed case. Placed comfort care order, comfort care order set, and D/C maintenance medications. Pt's allergy list shows allergies to codein and oxycodone. Consulted Hospital Pharmacist Cynthia. Cynthia reports Pt has had morphine in the past with no documented reaction. Continued diuretics for comfort. Placed Hospice Referral. Palliative Care will remain available.
--- NOTE | 2021-06-28 17:35 | NUR ---
PT WAS TRANSITIONED TO COMFORT CARE TODAY. STOPPING MOST INTERVENTION EXCEPT THE DIURETICS. HUSB AT BEDSIDE. MEDS BEING CHANGED. PT KEPT CLEAN AD DRY TODYA. TURNED Q2. CONTINUES TO BE EDEMA +2. BED INLOW POSITION, [place] IN [facility], BED ALARM ON FOR SAFETY
--- NOTE | 2021-06-28 22:42 | NUR ---
PT WAS PLACED ON COMFORT CARE EARLIER IN THE DAY PER AM RN REPORT. ORDER NOTED IN CHART. WHO WSA WITH PT ON DAY SHIFT, LEFT FOR HOME. WILL CONTINUE TO MONITOR.
--- NOTE | 2021-06-29 01:34 | NUR ---
REPOSITIONED. CPAP IN USE FOR COMFORT. CALL LIGHT IN REACH. HOB REMAINS ABOUT 30 DEGREES. BUMEX ADMINISTERED SCHEDULED FOR EDEMA. ISOLATOIN PRECAUTIONS MAINTAINED
--- NOTE | 2021-06-29 01:37 | NUR ---
COMFORT MEASURES CONTINUE. RESTING QUIETLY. CALL LIGHT IN REACH
--- NOTE | 2021-06-29 03:42 | NUR ---
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 WAS IN THE ROOM UNTIL A FEW HOURS INTO THE EVENING AND LEFT FOR HOME. PT RESTING QUIETLY WITH OCCASIONAL REPOSITIONING AND MEDICATIONS ORDERED FOR COMFORT NEEDED. RECEIVING BUMEX SCHEDULED EVERY 6 HRS FOR EDEMA. SCOTT DRAINING. NOTE SOME DRAINING FROM BLISTERS ON FOOT. CALL LIGHT IN REACH. ISOLATION PRECAUTIONS FOR COVID MEAINTAINED
--- NOTE | 2021-06-29 06:26 | NUR ---
COMFORT ARE CONTINUES. RESTING QUIETLY WITH CPAP IN USE,
--- NOTE | 2021-06-29 06:27 | NUR ---
NO NOTED ACUTE DISTRESS. CALL LIGHT IN REACH
--- NOTE | 2021-06-29 06:34 | NUR ---
REPOSITIONED. LINEN AND DIAPER CHANGED. CALL LIGHT IN REACH.
--- NOTE | 2021-06-29 20:33 | NUR ---
RESTING WITH O2 PER RT. WAS AT BEDSIDE AND LEFT A FEW MINUTES AGO, VOICED WILL BE BACK TOMORROW. CALL LIGHT IN REACH. ISOLATION PRECAUTIONS MAINTIANED
--- NOTE | 2021-06-29 22:16 | NUR ---
AWAKENED WHEN NURSE IN ROOM. DENIE PAIN WHEN ASKED. IV FLUSHED. SCOTT BAG EMPTIED. CALL LIGHT IN REACH. HAS BEEN RESTING QUIETLY
--- NOTE | 2021-06-30 03:52 | NUR ---
BUMEX ADMINISTERED. HOB REMAINS ELEVATED. CALL LIGHT IN REACH. RESTING QUIETLY
--- NOTE | 2021-06-30 03:53 | NUR ---
RESSTING QUIETLY. SLIGHT INCREASE IN RESPS BUT NO NOTED DISTRESS. CALL LIGHT IN REACH
--- NOTE | 2021-06-30 03:54 | NUR ---
MEDICATED FOR APPARENT AIR HUNGER. HOB REMAINS ELEVATED. CALL LIGHT IN REACH
--- NOTE | 2021-06-30 04:26 | NUR ---
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 LEFT SOON AFTER SHIFT COMMENCE AND TO RETURN IN THE AM. HAS BEEN RESTING WITH O2 PER NC, SOME APPARENT AIR HUNGER AND WAS MEDICATED FOR IT - SEE MAR FOR DETAILS. CURRENTOY RESTING QUIETLY. CALL LIGHT IN EACH. ISOLATION PRECAUTIONS MAINTAINED
--- NOTE | 2021-06-30 06:05 | NUR ---
CONTINUES TO REST QUIETLY. MONITORING. CALL LIGHT IN REACH
--- NOTE | 2021-06-30 17:32 | NUR ---
Met with pt and family after speaking with bedside RN Christie. Christie states she is going to give pt some ativan along with the roxanol as the pt's breathing has changed, and she is less responsive. Pt's and grandson are at bedside. Pt has been resting comfortably for most of the day. 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 He does not have any questions or concerns at this time.
--- NOTE | 2021-06-30 18:00 | NUR ---
PT HAS NOT BEEN VERBAL TODAY AND JUST WILL GROAN WHEN TURNED OR TALKED TO. PT HAS BEEN TREATED PER EMARM WITH COMFORT CARE MEDS. PT TURNED Q2 HRS. PT APPEARS COMFORTABLE AT THIS TIME. IS AT BEDSIDE WILL CONTINUE TO MONITOR.
--- NOTE | 2021-07-01 04:26 | NUR ---
TIME OF APPROXIMATELY 0250. AT BEDSIDE. CHAPEL GRIS MEHTA NOTIFED, POST MORTEM CARE COMPLETED.
== END 2021-07-01 04:10 | DRG 871 ==
LOC: ER 10:17 → MEDS 13:41 → ERHOLD 13:41 → MEDS 18:07
PROVIDERS: Internal Medicine; Internal Medicine Nephrology; Nurse Practitioner Acute Care; Student in an Organized Health Care Education/Training Program; ADMIT Internal Medicine
PROC: 8E0ZXY6 Isolation (ICD-10-PCS; principal; 2021-06-25)
PROC: 3E0333Z Introduction of Anti-inflammatory into Peripheral Vein, Percutaneous Approach (ICD-10-PCS; 2021-06-25)
PROC: 5A09357 Assistance with Respiratory Ventilation, Less than 24 Consecutive Hours, Continuous Positive Airway Pressure (ICD-10-PCS; 2021-06-28)
DX: A41.89 Other specified sepsis (principal); U07.1 COVID-19; J96.01 Acute respiratory failure with hypoxia; J12.82 Pneumonia due to coronavirus disease 2019; I13.0 Hypertensive heart and chronic kidney disease with heart failure and stage 1 through stage 4 chronic kidney disease, or unspecified chronic kidney disease; Z66 Do not resuscitate; Z51.5 Encounter for palliative care; N18.4 Chronic kidney disease, stage 4 (severe); N17.9 Acute kidney failure, unspecified; N25.81 Secondary hyperparathyroidism of renal origin; E87.2 Acidosis; R65.20 Severe sepsis without septic shock; Z68.43 Body mass index [BMI] 50.0-59.9, adult; I50.32 Chronic diastolic (congestive) heart failure; E87.6 Hypokalemia; R62.7 Adult failure to thrive; I27.20 Pulmonary hypertension, unspecified; D63.1 Anemia in chronic kidney disease; L89.309 Pressure ulcer of unspecified buttock, unspecified stage; E88.09 Other disorders of plasma-protein metabolism, not elsewhere classified; E66.01 Morbid (severe) obesity due to excess calories; E03.9 Hypothyroidism, unspecified; G47.33 Obstructive sleep apnea (adult) (pediatric); E11.22 Type 2 diabetes mellitus with diabetic chronic kidney disease; L89.899 Pressure ulcer of other site, unspecified stage; E11.42 Type 2 diabetes mellitus with diabetic polyneuropathy; E78.5 Hyperlipidemia, unspecified; Z88.5 Allergy status to narcotic agent; Z88.8 Allergy status to other drugs, medicaments and biological substances; Z91.013 Allergy to seafood; Z79.82 Long term (current) use of aspirin; Z79.4 Long term (current) use of insulin; Z79.899 Other long term (current) drug therapy; Z79.02 Long term (current) use of antithrombotics/antiplatelets; Z86.718 Personal history of other venous thrombosis and embolism; Z91.19 Patient's noncompliance with other medical treatment and regimen; Z86.711 Personal history of pulmonary embolism; Z90.89 Acquired absence of other organs; Z90.49 Acquired absence of other specified parts of digestive tract; Z90.711 Acquired absence of uterus with remaining cervical stump; Z85.72 Personal history of non-Hodgkin lymphomas; Z74.01 Bed confinement status; Z86.73 Personal history of transient ischemic attack (TIA), and cerebral infarction without residual deficits
CPT/HCPCS: 0241U; 36415; 51702; 71045; 76770; 80053; 80069; 81001; 82550; 82803; 82947; 83605; 83735; 83880; 84100; 84145; 84443; 84484; 85014; 85018; 85025; 87040; 87086; 93005; 93010; 94640; 94660; 94762; 96365-59; 96366-59; 96367-59; 96375-59; 99285-25; A9270; J1100; J1644; J1815; J2543; J3370; J3480; J7030; J7050; P9046